=== PATIENT | male | born 1940 | race Caucasian/White ===

== ENCOUNTER 2017-01-09 06:56 | Day surgery (SDC) | payer MEDICARE, BC ==
[~2017-01-09] VITALS: Ht 188 cm; Wt 97.6 kg
[2017-01-09 07:33] LABS: HEMATOCRIT 40.7 % (42.0-54.0); HEMOGLOBIN 13.6 g/dL (13.5-17.5); MCH 32.5 pg (26.0-34.0); MCHC 33.4 g/dL (31.0-37.0); MCV 97.4 fL (80.0-100.0); RBC 4.18 10x6/uL (4.20-6.10); RDW 14.3 % (11.5-14.5); WBC 6.4 10x3/uL (4.8-10.8)
[2017-01-09 07:42] LABS: APTT 26.4 SECONDS (22.8-39.4); INR 0.95 (0.85-1.17); PROTIME 12.5 SECONDS (11.6-15.0)
[2017-01-09 07:44] LABS: CALCIUM 8.8 mg/dL (8.5-10.1); CARBON DIOXIDE 26.3 mmol/L (21.0-32.0); CREATININE - SERUM 1.5 mg/dL (0.6-1.3); POTASSIUM - SERUM 4.3 mmol/L (3.5-5.1)
[2017-01-09] MEDS ORDERED: CENTRUM SILVER1 TA1 PO (09:49)
[2017-01-09] MEDS ORDERED: VITAMIN D31000 UNIT PO (09:49)
[2017-01-09] MEDS ORDERED: FLOMAX0.4 MG PO (09:51)
[2017-01-09] MEDS ORDERED: LISINOPRIL10 MG PO (09:51)
[2017-01-09] MEDS ORDERED: SYNTHROID50 MCG PO (09:52)
[2017-01-09] MEDS ORDERED: BAYER CHEWABLE81 MG PO (09:53)
[2017-01-09] MEDS ORDERED: ZYLOPRIM300 MG PO (09:54)
[2017-01-09 10:18] VITALS: BP 149/77; Ht 188 cm; Wt 97.6 kg
[2017-01-09 11:35] LABS: APPEARANCE CLEAR (CLEAR); BILIRUBIN NEGATIVE (NEGATIVE); COLOR YELLOW (YELLOW); GLUCOSE NEGATIVE (NEGATIVE); KETONE NEGATIVE (NEGATIVE); LEUKOCYTE ESTERASE NEGATIVE (NEGATIVE); NITRITE NEGATIVE (NEGATIVE); PROTEIN NEGATIVE (NEGATIVE); SPECIFIC GRAVITY 1.015 (1.005-1.020); UROBILINOGEN NORMAL (NORMAL)
--- NOTE | 2017-01-09 15:13 | NUR ---
1420--IV DC'D, PT UP TO DRESS AT THIS TIME. RICARDO JIN 1430--DISCHARGE INSTRUCTIONS GIVEN, PT VERBALIZES UNDERSTANDING. PT OFF UNIT VIA WC. RICADRO JIN
[2017-01-10 11:10] LABS: HEPATITIS C ANTIBODY <0.1 (0.0-0.9)
--- NOTE | 2017-01-10 11:55 | HP ---
PATIENT: ORIANA DUFFY MEDICAL RECORD: [id number] ACCOUNT: [id number] LOCATION:D.OPS : 40 ADMISSION DATE: 01/09/17 HISTORY AND PHYSICAL EXAMINATION ORIANA Trinidad (76yo, M) ID# [id number] Date/Time12/31/2016 02:06PGUPQ60 1940ervice Dept.NP_[facility] ClinicProviderEDNADIA MARMOLEJO MDInsuranceMed Primary: [place] Insurance # : [id number] Referring Provider Name : RICO VIDALES Employer Name : RETIRED Med Secondary: [place] ([place]PPLEMENT) Insurance # : [id number] Policy/Group # : [id number] Referring Provider Name : RICO VIDALES Employer Name : RETIRED Prescription: [employer] - This member could not be found in the payer's files. Please verify coverage and all member demographic information. Chief Complaint valvular heart disease Patient's Care Team Referring Provider (): RICO VIDALES: [address] [place] [phone], , Patient's Pharmacies [facility] (ER[facility]): [address] [place] [phone], , Vitals BP:130/80 sitting R arm 12/31/2016 02:24 pm 128/82 sitting L arm 12/31/2016 02:25 pmHR:80R/R 12/31/2016 02:25 pmHt:6 ft 2 in 12/31/2016 02:22 pmWt:221 lbs 12/31/2016 02:22 pmNotes:murmur 12/31/2016 02:28 pmBMI:28.4 12/31/2016 02:22 pmAllergies Reviewed Allergies PENICILLINSROBITUSSINMedications Reviewed Medications Adult Low Dose Pvygzwc25/29/17 enteredKathy Wilsonallopurinol 300 mg tablet Take 1 tablet(s) twice a day by oral route.12/30/16 enteredKathy WilsonCentrum Complete 18 mg-400 mcg tablet Take by oral route.12/30/16 [facility] WilsonLevitra 20 mg tablet TAKE 1 TABLET (20 MG) BY ORAL ROUTE ONCE DAILY NEEDED APPROXIMATELY 1 HOUR BEFORE SEXUAL YAWNBHHF60/29/17 [facility] JabariSynthroid 50 mcg tablet Take 1 tablet(s) every day by oral route.12/30/16 [facility] JabariVitamin D3 2,000 unit capsule Take 1 capsule(s) every day by oral route.12/30/16 [facility] WilsonProblems Reviewed Problems Mitral valve regurgitation - Onset: 12/30/2016 Mitral valve disorder - Onset: 12/30/2016 Family History Discussed Family History Father- Disorder of lung - Chronic obstructive lung disease ( age: 79)Mother- Tuberculosis ( age: 27)Social History Discussed Social History Cardiology Family history of heart disease?: N Smoking Status: Former smoker (Notes: quit May 2010) HISTORY AND PHYSICAL [id number] ORIANA DUFFY High Cholesterol: N High blood pressure: N Overweight: Y Obese: N Diabetes: N Alcohol intake: Occasional Occupation: retired Surgical History Reviewed Surgical History Colonoscopy with biopsy - 05/04/2006 Ligation of hemorrhoid(s) - 05/04/1991 Past Medical History Discussed Past Medical History Heartburn: Y Hyperlipidemia: Y Hypertension: Y Hypothyroidism: Y Joint Pain or Swelling: Y - L shoulder Prostate Problems: Y Notes: gout, ED, hemorrhoids, DJD cervical spine, bursitis L shoulder, BPH, fatigue, lumbar strain, gastritis, sinusitis, bronchitis Documents for Discussion N/A Screening None recorded. HPI Valvular Heart Disease Reported by patient. Context: mitral insufficiency Mitral Insufficiency: moderate Associated Symptoms: palpitations; chest pain Notes: "fatigue light headed." Murmur and mitral regurgitation ROS Patient reports arm pain on exertion and known heart murmur but reports no chest pain, no shortness of breath when walking, no shortness of breath when lying down, and no palpitations. He reports muscle aches and arthralgias/joint pain but reports n o muscle weakness, no back pain, and no swelling in the extremities. He reports no fever, no night sweats, no significant weight gain, no significant weight loss, and no exercise intolerance. He reports no dry eyes, no irritation, and no vision change. He reports no difficulty hearing and no ear pain. He reports no frequent nosebleeds and no nose/sinus problems. He reports no sore throat, no bleeding gums, no snoring, no dry mouth, no mouth ulcers, no oral abnormalities, and no teeth problems. He reports n o jugular vein distension and no swollen glands. He reports no cough, no wheezing, no shortness of breath, and no coughing up blood. He reports no abdominal pain, no vomiting, normal appetite, no diarrhea, not vomiting blood, no nausea, and no constipation . He reports no incontinence, no difficulty urinating, no hematuria, and no increased frequency. He reports no abnormal mole, no jaundice, and no rashes. He reports no loss of consciousness, no weakness, no numbness, no seizures, no dizziness, and no heada c hes. He reports no depression, no sleep disturbances, feeling safe in relationship, and no alcohol abuse. He reports no fatigue. He reports no swollen glands and no bruising. He reports no runny nose, no sinus pressure, no itching, no hives, and no freque nt sneezing. ROS as noted in the HPI HISTORY AND PHYSICAL [id number] ORIANA DUFFY Physical Exam Patient is a 76-year-old male. Constitutional: General Appearance well nourished and developed and healthy-appearing. Level of Distress NAD. Ambulation ambulating normally. Cardiovascular: Apical Impulse not displaced or no thrill. Heart Auscultation normal s1 and s2, no rubs or gallops, and RRR and murmur (mitral regurgitation). Arterial Pulses no abdominal aorta bruits, femoral bruits, or popliteal bruits and 2+ bilateral, carotid 2+ bilateral, femoral 2+ bilateral, popliteal 2+ bilateral, and dorsalis pedis 2+ bilateral. Edema no edema or varicosities. Lungs: Repiratory Effort no dyspnea. Percussion no hyperresonance or dullness or flatness. Auscultation no wheezing, rhonchi, or rales / crackles and breathing sounds normal, good air movement, and CTA except as noted. Abdomen: Bowl Sounds normal. Inspection and Palpation no tenderness, guarding, masses, or rebound tenderness and soft and non-distended. Liver non-tender and no hepatomegaly. Spleen non-tender and no splenomegaly. Hernia none palpable. Musculoskeletal System: Gait And Stance normal gait and stance. Digits and Nails normal nails and no cyanosis. Neurologic: Cranial Nerves grossly intact. Reflexes DTRs 2+ bilaterally throughout. Sensation grossly intact. Lymph Nodes: Lymph Nodes no cervical LAD, supraclavicular LAD, axillary LAD, or inguinal LAD. Eyes: Lids and Conjunctivae no discharge or pallor and non-injected. Pupils PERRLA. Cornea grossly intact. EOM EOMI. Lens clear. Sclerae non-icteric. Neck: Neck no masses, enlarged lymph nodes, or carotid bruits and supple and trachea midline. Thyroid no enlargement or nodules and non-tender. Skin: Inspection and Palpation no rash, lesions, ulcers, jaundice, or abnormal nevi. Assessment / Plan mitral regurgitation 1. Mitral valve regurgitation I34.0: Nonrheumatic mitral (valve) insufficiency HEART VALVE DISEASE: CARE INSTRUCTIONS MITRAL VALVE REGURGITATION: CARE INSTRUCTIONS Discussion Notes mitral regurgitation His left atrium was not enlarged and he is not short of breath I think he would benefit from a transesophageal echo scheduled transesophageal echo HISTORY AND PHYSICAL [id number] ORIANA DUFFY EDWARD MD at 1155 CC: [id number] DICTATION DATE: 12/31/16 1400 ROLLING ATTENDANT: DM 01/08/17 0956 [facility] 01/09/17 [facility] [address] [place] [address]
--- NOTE | 2017-01-10 11:55 | OP ---
PATIENT NAME: ORIANA DUFFY MEDICAL RECORD: [id number] :40 [facility] AD[facility] DATE: SURGEON: BRITTANY CHRIS MD DATE OF OPERATION: 01/09/2017 SURGEON: Brittany Chris MD ANESTHESIA: General. Dr. Mullen. OPERATION PERFORMED: Transesophageal echo. PREOPERATIVE DIAGNOSIS: Possible mitral regurgitation, mitral valve prolapse. POSTOPERATIVE DIAGNOSIS: Mitral valve prolapse. Minimal mitral regurgitation, left atrium 3 cm. ESTIMATED BLOOD LOSS: None. DESCRIPTION OF PROCEDURE: After informed consent and adequate preoperative medication evaluation, the patient was brought to the operating room and placed on the table in the supine position. After induction of general anesthesia and application of appropriate monitoring devices, the patient underwent transesophageal echo with the images obtained in the machine. These will be read by the insurance adviser. Interpretation at the time of surgery demonstrates posterior leaflet mitral valve prolapse; however, the mitral regurgitation is very minimal. The patient tolerated the procedure well, awakened and transferred to the recovery room in satisfactory condition. TRANSINT:[id number] Voice Confirmation ID: [id number] DOCUMENT ID: [id number] BRITTANY CHRIS MD at 1155 CC: [id number] DICTATION DATE: 01/09/17 1251 DYEING MACHINE TENDER: 01/09/[address] [facility] 01/09/17 [place] [id number] [place] [address]
--- NOTE | 2017-01-13 09:05 | TEE ---
PATIENT:ORIANA DUFFY MEDICAL RECORD: [id number] LOCATION:D.[facility] AGE OF PATIENT: 76 ADMISSION DATE: 01/09/17 SEX: M REFERRING PHYSICIAN: INTERPRETING PHYSICIAN: TIGRE QUINONES MD TRANSESOPHAGEAL ECHOCARDIOGRAM MAVIS CHARGE Y INDICATIONS: EVALUATE MITRAL VALVE PREMEDICATIONS: PATIENT'S RESPONSE PROCEDURE DOPPLER MEASUREMENTS: LVIT LA PA RA LVOT RVOT Asc. Ao AV Gradient Peak AV Mean AV Area MV Gradient Peak MV Mean MV Area INTERPRETATION: Doppler: 2-D: COLOR FLOW DOPPLER NORMAL SALINE STUDY: MISCELLANOUS: DIAGNOSIS: PLAN: Swine Genetics Researcher:1 Dr. Spencer Vamp Seamer: Nannette JAVED COMMENTS: DATE OF SERVICE: 01/09/2017 Transesophageal Report FINDINGS: 1. Left ventricle has mild LVH, but appears to have normal function. 2. The mitral valve appears to have prolapsing posterior mitral valve structures with eccentric mitral regurgitation, anteriorly directed. 3. The aortic valve is trileaflet and normal. TRANSESOPHAGEAL ECHOCARDIOGRAM REPORT [id number] ORIANA DUFFY 4. The pulmonic valve appears to be grossly normal. CONCLUSION: The patient appears to have a possible chordal disruption of the posterior mitral valve leaflet structure with resultant dysfunction of the coaptation resulting in anteriorly directed regurgitation. TRANSINT:[id number] Voice Confirmation ID: [id number] DOCUMENT ID: [id number] at 0905 CC: [id number] DICTATION DATE: 01/11/172015 PRODUCE DEPARTMENT SUPERVISOR: 01/11/17 2316 [facility] 01/09/17 [place] [id number] [place] [address]
== END 2017-01-09 14:30 | disposition home or self-care (01) ==
LOC: D.OPS 06:56
PROVIDERS: Internal Medicine Cardiovascular Disease
DX: I34.0 Nonrheumatic mitral (valve) insufficiency (principal); R00.1 Bradycardia, unspecified; Z01.812 Encounter for preprocedural laboratory examination

== ENCOUNTER → 2017-01-13 12:40 | Outpatient (CLI) | payer MEDICARE, BC ==
[2017-01-09 10:18] VITALS: BMI 27.6
[~2017-01-13 12:40] MED LIST: BAYER CHEWABLE81 MG PO; CENTRUM SILVER1 TA1 PO; FLOMAX0.4 MG PO; LISINOPRIL10 MG PO; SYNTHROID50 MCG PO; VITAMIN D31000 UNIT PO; ZYLOPRIM300 MG PO
== END | disposition home or self-care (01) ==
LOC: D.US 12:40
DX: I65.23 Occlusion and stenosis of bilateral carotid arteries (principal)

== ENCOUNTER 2017-07-10 14:51 | Inpatient (IN) | payer MEDICARE, BC ==
[~2017-07-10] VITALS: Ht 188 cm; Wt 102.3 kg
--- NOTE | ~2017-07-10 | CN ---
PATIENT NAME:ORIANA WASHINGTON MEDICAL RECORD: [id number] : 40 LOCATION:D[facility] ADMIT DATE: 07/10/17 ACCOUNT: [id number] CONSULTING PHYSICIAN: CHERRIE SOLIS MD REFERRING PHYSICIAN: JOSE STAFFORD DO DATE OF CONSULTATION: 07/10/2017 CONSULT REQUESTING PHYSICIAN: Butch STAFFORD. REASON FOR CONSULTATION: Pneumonia. HISTORY OF PRESENT ILLNESS: Mr. Washington is a 77-year-old gentleman who has flu 2 weeks ago, he was treated with Tamiflu for 5 days, but for the last few days, he is not feeling well. He is a running fever noted at home 104.5. He was also coughing. Cough is productive with yellow color sputum production. He is also having chills. There are no night sweats. The patient was seen in Dr. Stafford's office today and admitted for pneumonia, possible sepsis. REVIEW OF SYSTEMS: Mainly in the history of present illness. PAST MEDICAL HISTORY: 1. Hypothyroidism. 2. Hypertension. 3. History of murmur. PAST SURGICAL HISTORY: 1. He has vasectomy. 2. Hemorrhoidectomy. 3. He has transesophageal echo for heart murmur. ALLERGIES: HE IS ALLERGIC TO PENICILLIN. MEDICATIONS: He is on lisinopril, Synthroid. PERSONAL AND SOCIAL HISTORY: He has remote history of smoking. He quitted 50 years ago. He is a nondrinker. FAMILY HISTORY: Noncontributory. PHYSICAL EXAMINATION: GENERAL: Now, the patient is lying comfortably in bed. He is not in acute distress. VITAL SIGNS: Blood pressure 114/63, pulse is 86, respiration is 16, temperature 100.5, SpO2 92% on room air. HEENT: Conjunctivae is pink, sclerae nonicteric. NECK: Supple, no JVD. CHEST: Excursion is minimal with a crackle on the right side. HEART: Regular, normal sound, no murmur. ABDOMEN: Soft. Bowel sounds present. No hepatosplenomegaly. RECTAL: Deferred. EXTREMITIES: No cyanosis, no clubbing, no pedal edema. SKIN: Warm, normal turgor. CENTRAL NERVOUS SYSTEM: The patient is awake and alert. There are no obvious cranial nerve abnormality. The gait was not tested. CONSULT REPORT [id number] ORIANA WASHINGTON LABORATORY DATA: CBC: WBC 19.7, hemoglobin 13.4, hematocrit 41, and the platelet count is 246. The neutrophils are 83%. Chemistry: Sodium 135, potassium 4.3, BUN is 24, creatinine 1.8, glucose 130. IMPRESSION: 1. Pneumonia, possible right upper lobe, most likely community-acquired pneumonia. 2. Recent influenza. 3. Leukocytosis. 4. Febrile illness with a temperature of 100.5. 5. Ex-smoker, suspect chronic obstructive pulmonary disease. 6. Hypertension. 7. Hypothyroidism. RECOMMENDATION: 1. Continue Levaquin. I will add Rocephin. 2. Check the blood culture and follow up on the labs and chest radiograph. 3. Continue IV fluids. 4. Mucinex DM 2 tablets b.i.d. 5. Tessalon Perles. 6. Continue home medications. Dr. Stafford, thank you for involving me in the care of Mr. Washington. TRANSINT:[id number] Voice Confirmation ID: [id number] DOCUMENT ID: [id number] CHERRIE SOLIS MD at 1340 CC: JOSE STAFFORD DO [id number] DICTATION DATE: 07/10/17 1739 WINDOW ASSEMBLER: 07/10/17 1816 [facility] IN 07/13/17 [facility] [address] [place] [address]
[2017-07-10 15:28] LABS: COLOR DK YELLOW (YELLOW)
[2017-07-10 15:29] LABS: APPEARANCE CLEAR (CLEAR); BILIRUBIN NEGATIVE (NEGATIVE); GLUCOSE NEGATIVE (NEGATIVE); KETONE NEGATIVE (NEGATIVE); NITRITE NEGATIVE (NEGATIVE); PROTEIN TRACE mg/dL (NEGATIVE); UROBILINOGEN NORMAL (NORMAL)
[2017-07-10 15:34] LABS: BASOPHILS 0.2 % (0-2); EOSINOPHILS 0.2 % (0-7); HEMOGLOBIN 13.4 g/dL (13.5-17.5); IMMATURE GRANULOCYTES 0.3 % (0-5); LYMPHOCYTES 5.4 % (15-50); MCH 33.1 pg (26.0-34.0); MCHC 32.7 g/dL (31.0-37.0); MCV 101.2 fL (80.0-100.0); MEAN PLATELET VOLUME 9.5 fL (7.4-10.4); MONOCYTES 10.7 % (2-11); NEUTROPHILS 83.2 % (40-80); PLATELET COUNT 246 10x3/uL (130-400); RBC 4.05 10x6/uL (4.20-6.10); RDW 14.3 % (11.5-14.5); WBC 19.7 10x3/uL (4.8-10.8)
[2017-07-10 15:52] VITALS: BMI 28.9
[2017-07-10 16:02] LABS: ALBUMIN 3.5 g/dL (3.4-5.0); ANION GAP 13.1 mmol/L (8-16); BILIRUBIN - TOTAL 1.46 mg/dL (0.2-1.3); CALCIUM 9.2 mg/dL (8.5-10.1); CARBON DIOXIDE 25.2 mmol/L (21.0-32.0); CREATININE - SERUM 1.8 mg/dL (0.6-1.3); POTASSIUM - SERUM 4.3 mmol/L (3.5-5.1)
[2017-07-10 23:02] VITALS: BP 116/52
[2017-07-11 02:45] VITALS: BP 116/52
[2017-07-11 04:32] VITALS: BP 112/55
[2017-07-11 06:09] LABS: BASOPHILS 0.1 % (0-2); EOSINOPHILS 0.4 % (0-7); HEMATOCRIT 37.1 % (42.0-54.0); HEMOGLOBIN 11.8 g/dL (13.5-17.5); IMMATURE GRANULOCYTES 0.2 % (0-5); LYMPHOCYTES 9.4 % (15-50); MCH 31.9 pg (26.0-34.0); MCHC 31.8 g/dL (31.0-37.0); MCV 100.3 fL (80.0-100.0); MEAN PLATELET VOLUME 9.5 fL (7.4-10.4); MONOCYTES 12.2 % (2-11); NEUTROPHILS 77.7 % (40-80); PLATELET COUNT 245 10x3/uL (130-400); RDW 14.1 % (11.5-14.5); WBC 16.6 10x3/uL (4.8-10.8)
[2017-07-11 06:26] LABS: ALBUMIN 2.7 g/dL (3.4-5.0); ANION GAP 12.4 mmol/L (8-16); BILIRUBIN - TOTAL 1.1 mg/dL (0.2-1.3); CALCIUM 8.5 mg/dL (8.5-10.1); CARBON DIOXIDE 26.3 mmol/L (21.0-32.0); CREATININE - SERUM 1.8 mg/dL (0.6-1.3); POTASSIUM - SERUM 4.7 mmol/L (3.5-5.1); PROTEIN - SERUM 6.6 g/dL (6.4-8.2)
[2017-07-11 06:31] LABS: APPEARANCE CLEAR (CLEAR); BILIRUBIN NEGATIVE (NEGATIVE); COLOR YELLOW (YELLOW); GLUCOSE NEGATIVE (NEGATIVE); KETONE NEGATIVE (NEGATIVE); NITRITE NEGATIVE (NEGATIVE); PROTEIN 1+ mg/dL (NEGATIVE); SPECIFIC GRAVITY 1.015 (1.005-1.020); UROBILINOGEN NORMAL (NORMAL)
[2017-07-11 06:32] LABS: BACTERIA FEW /hpf (NONE SEEN); EPITHELIAL CELLS 0-5 /hpf (0-5); RED CELLS - URINE NONE SEEN /hpf (0-5); WHITE CELLS - URINE 0-5 /hpf (0-5)
[2017-07-11 08:20] VITALS: BP 109/61
[2017-07-11 12:27] VITALS: BP 140/70
[2017-07-11 15:18] VITALS: BP 126/72
[2017-07-11 22:58] VITALS: BP 130/65
[2017-07-12 01:21] VITALS: BP 128/70
[2017-07-12 05:09] LABS: BASOPHILS 0.2 % (0-2); EOSINOPHILS 1.1 % (0-7); HEMATOCRIT 37.6 % (42.0-54.0); HEMOGLOBIN 12.3 g/dL (13.5-17.5); IMMATURE GRANULOCYTES 0.2 % (0-5); LYMPHOCYTES 12.7 % (15-50); MCH 32.5 pg (26.0-34.0); MCHC 32.7 g/dL (31.0-37.0); MCV 99.2 fL (80.0-100.0); MEAN PLATELET VOLUME 9.4 fL (7.4-10.4); MONOCYTES 13.2 % (2-11); NEUTROPHILS 72.6 % (40-80); PLATELET COUNT 257 10x3/uL (130-400); RBC 3.79 10x6/uL (4.20-6.10); RDW 14.1 % (11.5-14.5); WBC 15.1 10x3/uL (4.8-10.8)
[2017-07-12 05:28] LABS: ALBUMIN 2.7 g/dL (3.4-5.0); ANION GAP 10.4 mmol/L (8-16); BILIRUBIN - TOTAL 0.79 mg/dL (0.2-1.3); CALCIUM 9.2 mg/dL (8.5-10.1); CREATININE - SERUM 1.7 mg/dL (0.6-1.3); POTASSIUM - SERUM 4.4 mmol/L (3.5-5.1)
[2017-07-12 05:44] VITALS: BP 134/74
[2017-07-12 08:32] VITALS: BP 91/62
[2017-07-12 12:07] VITALS: BP 96/48
[2017-07-12 18:20] VITALS: Ht 188 cm; Wt 102.3 kg
[2017-07-12 23:07] VITALS: BP 140/73
[2017-07-13 04:08] LABS: BASOPHILS 0.2 % (0-2); EOSINOPHILS 2.3 % (0-7); HEMATOCRIT 33.8 % (42.0-54.0); IMMATURE GRANULOCYTES 0.3 % (0-5); LYMPHOCYTES 12.6 % (15-50); MCH 32.2 pg (26.0-34.0); MCHC 32.5 g/dL (31.0-37.0); MCV 98.8 fL (80.0-100.0); MEAN PLATELET VOLUME 9.5 fL (7.4-10.4); MONOCYTES 13.7 % (2-11); NEUTROPHILS 70.9 % (40-80); PLATELET COUNT 275 10x3/uL (130-400); RBC 3.42 10x6/uL (4.20-6.10); RDW 14.1 % (11.5-14.5); WBC 11.7 10x3/uL (4.8-10.8)
[2017-07-13 04:21] LABS: ALBUMIN 2.4 g/dL (3.4-5.0); ANION GAP 14.3 mmol/L (8-16); BILIRUBIN - TOTAL 0.65 mg/dL (0.2-1.3); CALCIUM 8.8 mg/dL (8.5-10.1); CREATININE - SERUM 1.7 mg/dL (0.6-1.3); POTASSIUM - SERUM 4.3 mmol/L (3.5-5.1); PROTEIN - SERUM 6.4 g/dL (6.4-8.2)
[2017-07-13 05:06] VITALS: BP 136/69
[2017-07-13] MEDS ORDERED: LEVAQUIN750 MG PO (07:17)
[2017-07-13 08:11] VITALS: BP 147/91
== END 2017-07-13 09:54 | disposition home or self-care (01) | DRG 871 ==
LOC: D.MS 14:51
PROVIDERS: Family Medicine
DX: A41.9 Sepsis, unspecified organism (principal); J18.9 Pneumonia, unspecified organism; E03.9 Hypothyroidism, unspecified; Z87.891 Personal history of nicotine dependence

== ENCOUNTER → 2017-10-13 09:42 | Outpatient (CLI) | payer MEDICARE, BC ==
[2017-07-12 18:20] VITALS: BMI 28.9
--- NOTE | ~2017-10-13 | EC ---
PATIENT:ORIANA DUFFY DATE OF SERVICE: 10/13/17 SEX: M MEDICAL RECORD: [id number] DATE OF : 40 [facility] AGE OF PATIENT: 77 ADMISSION DATE: 10/13/17 REFERRING PHYSICIAN: INTERPRETING PHYSICIAN: CONSTANCE MARKS MD ECHOCARDIOGRAM REPORT ECHO CHARGES 4 ECHO COMPLETE Date: 10/13 CLINICAL DIAGNOSIS: MITRAL REGURG ECHOCARDIOGRAPHIC MEASUREMENTS (adult normal given) AC root (d.<3.7cm) 3.5 cm LV Septum d (<1.2 cm> 1.6 cm Valve Excursion 1.7 cm LV Septum (systole) 1.8 cm Left Atria (s.<4.0cm> 3.9 cm LVPW d(<1.2cm) 1.6 cm RV (d.<2.3cm) 4.4 cm LVPW (sytole) 1.9 cm LV diastole(<5.6CM) 5.6 cm MV E-F(>70mm/sec) cm LV systole 3.2 cm LVOT Diameter 2.3 cm MV exc.(>10mm) 2.1 cm Est.ejection fraction (50-75%) % DOPPLER: LVIT cm/sec A 93.0 cm/sec E 97.0 cm/sec LA cm/sec RVSP 29 mmHg LVOT 108 cm/sec AOP1/2T m/s Asc. Ao 133 cm/sec RVOT 76 cm/sec RA cm/sec PA 134 cm/sec AV Gradient Peak 7.04 mmHg AV Mean 3.30 mmHg AV Area 3.7 cm MV Gradient Peak 4.52 mmHg MV Mean 1.90 mmHg MV Area cm COMMENTS: Milk Truck Driver: Monica GAN Permanent Mold Supervisor: 2 Dr. Kraus TAPE# PACS Pericardial Effusion N DATE OF SERVICE: 10/13/2017 PROCEDURE: Echocardiogram. FINDINGS: 1. Left ventricular chamber size is within normal limits. Left ventricular systolic function is normal. Overall ejection fraction estimated at 65%. 2. Left atrium is upper limits of normal at 3.9 cm. Right atrium and right ventricle chamber sizes are yicv-fq-rnmlcasuyk dilated. 3. Valvular structures have normal structure and motion. ECHOCARDIOGRAM REPORT [id number] ORIANA DUFFY 4. Doppler interrogation reveals nehx-of-mdriowym mitral regurgitation, mild tricuspid regurgitation, no other valvular insufficiency or stenosis. Pulmonary systolic pressure is normal estimated at 29 mmHg. 5. No evidence of pericardial effusion or left ventricular thrombus. TRANSINT:[id number] Voice Confirmation ID: [id number] DOCUMENT ID: [id number] CONSTANCE MARKS MD at 1705 CC: [id number] DICTATION DATE: 10/13/17 1058 COAL INSPECTOR: 10/13/17 1315 [facility] CLI 10/13/17 [place] [id number] [place] [id number]
[~2017-10-13 09:42] MED LIST changes: +LEVAQUIN750 MG PO
== END | disposition home or self-care (01) ==
LOC: D.ECHO 10-12 09:00
DX: I34.0 Nonrheumatic mitral (valve) insufficiency (principal)

== ENCOUNTER → 2017-10-23 09:34 | Outpatient (CLI) | payer MEDICARE, BC ==
[2017-07-12 18:20] VITALS: BMI 28.9
== END | disposition home or self-care (01) ==
LOC: D.CT 09:34
DX: J18.9 Pneumonia, unspecified organism (principal)

== ENCOUNTER → 2018-10-08 09:05 | Outpatient (CLI) | payer MEDICARE, BC ==
[2017-07-12 18:20] VITALS: BMI 28.9
--- NOTE | 2018-10-11 09:55 | EC ---
PATIENT:ORIANA DUFFY DATE OF SERVICE: 10/08/18 SEX: M MEDICAL RECORD: [id number] DATE OF : 40 LOCATION:D[facility] AGE OF PATIENT: 78 ADMISSION DATE: 10/08/18 REFERRING PHYSICIAN: INTERPRETING PHYSICIAN: SAIDA RECINOS MD ECHOCARDIOGRAM REPORT ECHO CHARGES 4 ECHO COMPLETE Date: 10/08/18 CLINICAL DIAGNOSIS: MR ECHOCARDIOGRAPHIC MEASUREMENTS (adult normal given) AC root (d.<3.7cm) 2.9 cm LV Septum d (<1.2 cm> 1.3 cm Valve Excursion 1.4 cm LV Septum (systole) 1.6 cm Left Atria (s.<4.0cm> 4.0 cm LVPW d(<1.2cm) 1.2 cm RV (d.<2.3cm) 3.2 cm LVPW (sytole) 1.5 cm LV diastole(<5.6CM) 4.9 cm MV E-F(>70mm/sec) cm LV systole 3.3 cm LVOT Diameter 2.1 cm MV exc.(>10mm) cm Est.ejection fraction (50-75%) % DOPPLER: LVIT cm/sec A 77 cm/sec E 83 cm/sec LA cm/sec RVSP 75.3 mmHg LVOT 107 cm/sec AOP1/2T m/s Asc. Ao 129 cm/sec RVOT 63 cm/sec RA cm/sec PA 88 cm/sec AV Gradient Peak 6.7 mmHg AV Mean 3.8 mmHg AV Area 2.6 cm MV Gradient Peak 4.7 mmHg MV Mean 1.9 mmHg MV Area cm COMMENTS: Shank Threader: Kishan GARCIAMICHAEL CHRISTINA Lump Roller: 3 Dr. Cramer TAPE# PACS Pericardial Effusion N DATE OF SERVICE: Adequate 2D, color flow, spectral Doppler, and M-Mode Borderline LVH. LV internal dimensions are normal. Wall motion is normal. EF is greater than or equal to 55%. Aortic valve sclerosis is without stenosis by Doppler interrogation. Left atrium is normal at 4.0 cm. Mitral valve shows some bowing of the posterior leaflet. No obvious prolapse, but severe MR. Right-sided chambers are grossly normal. Mild TR. ECHOCARDIOGRAM REPORT [id number] ORIANA DUFFY TRANSINT:[id number] Voice Confirmation ID: [id number] DOCUMENT ID: [id number] SAIDA RECINOS MD at 0955 CC: [id number] DICTATION DATE: 10/08/18 1133 PARKING SUPERVISOR: 10/08/18 1345 [facility] CLI 10/08/18 [address] [place] [address]
== END | disposition home or self-care (01) ==
LOC: D.ECHO 09:05
PROVIDERS: ATTEND Internal Medicine Cardiovascular Disease
DX: I34.0 Nonrheumatic mitral (valve) insufficiency (principal)

== ENCOUNTER → 2019-02-01 08:35 | Outpatient (CLI) | payer MEDICARE, BC ==
[2017-07-12 18:20] VITALS: BMI 28.9
[~2019-02-01 08:35] MED LIST changes: +BETAPACE 80 MG80 MG PO; +COLACE100 MG PO; +PERCOCET 5-3251 TAB PO; +PROSCAR5 MG PO; +VITAMIN C500 M1 PO
--- NOTE | 2019-02-03 13:56 | EC ---
PATIENT:ORIANA DUFFY DATE OF SERVICE: 02/01/19 SEX: M MEDICAL RECORD: [id number] DATE OF : 40 [facility] AGE OF PAT[facility]: 78 ADMISSION DATE: 02/01/19 REFERRING PHYSICIAN: INTERPRETING PHYSICIAN: SAIDA RECINOS MD ECHOCARDIOGRAM REPORT ECHO CHARGES 4 ECHO COMPLETE Date: 02/01/19 CLINICAL DIAGNOSIS: MR H/O HTN ECHOCARDIOGRAPHIC MEASUREMENTS (adult normal given) AC root (d.<3.7cm) 3.1 cm LV Septum d (<1.2 cm> 1.5 cm Valve Excursion 1.8 cm LV Septum (systole) 2.1 cm Left Atria (s.<4.0cm> 4.8 cm LVPW d(<1.2cm) 1.3 cm RV (d.<2.3cm) 2.9 cm LVPW (sytole) 1.8 cm LV diastole(<5.6CM) 5.7 cm MV E-F(>70mm/sec) cm LV systole 3.3 cm LVOT Diameter 2.2 cm MV exc.(>10mm) cm Est.ejection fraction (50-75%) % DOPPLER: LVIT cm/sec A 77.0 cm/sec E 105 cm/sec LA cm/sec RVSP 37.0 mmHg LVOT 101 cm/sec AOP1/2T m/s Asc. Ao 210 cm/sec RVOT 73.0 cm/sec RA cm/sec PA 92.0 cm/sec AV Gradient Peak 18.0 mmHg AV Mean 9.3 mmHg AV Area 1.6 cm MV Gradient Peak 5.6 mmHg MV Mean 2.1 mmHg MV Area cm COMMENTS: OP - HC Telephone Order Dispatcher: 1 PARDEEP BELLOOE Merchandise Executive: 3 Dr. Cramer TAPE# PACS Pericardial Effusion N DATE OF SERVICE: Adequate 2D, color flow imaging, spectral Doppler, and M-Mode. Mild LVH. LV internal dimensions are normal. Wall motion is normal. EF is greater than or equal to 55%. Aortic valve is sclerosed without stenosis by Doppler interrogation. Left atrium is dilated at 4.8 cm. Mitral valve shows prolapse. Jzfd-dj-osiaiexb MR. Right-sided chambers grossly normal. Trace TR. TRANSINT:[id number] Voice Confirmation ID: [id number] DOCUMENT ID: [id number] ECHOCARDIOGRAM REPORT [id number] ORIANA DUFFY,SAIDA Rivera MD at 1356 CC: [id number] DICTATION DATE: 02/01/19 161 ETL DEVELOPER: 02/02/19 0109 [facility]P CLI 02/01/19 [place] [address] [place] [address]
== END | disposition home or self-care (01) ==
LOC: D.HCCECHO 08:35 → D.HCCARDIO 09:00 → D.HCCECHO 09:00
PROVIDERS: ATTEND Internal Medicine Interventional Cardiology
DX: I34.0 Nonrheumatic mitral (valve) insufficiency (principal)

== ENCOUNTER 2019-02-21 10:56 | Outpatient (CLI) | payer MEDICARE, BC ==
[~2019-02-21] VITALS: Ht 188 cm; Wt 100.0 kg
--- NOTE | ~2019-02-21 | HEMODYNAMI ---
PATIENT:ORIANA DUFFY MEDICAL RECORD: [id number] : 40 LOCATION:D.CAT ADMISSION DATE: 02/21/19 Generatedon:02/21/201913:26 Patient name: ORIANA DUFFY Patient #: [id number] SSN: : 1940 Date of study: 02/21/2019 Page: Of Hemodynamic Procedure Report Patient Data Patient Demographics Procedure consent was obtained First Name: ORIANA Gender: Male Last Name: CLIVE : 1940 [facility] Initial: MATT Age: 78 year(s) Patient #: [id number] Race: Unknown Additional ID: [id number] Contact details Address: [address] [place] [address] [facility] State: [place] City: [place] Zip code: [address] Past Medical History Allergies Allergen Reaction Date Comments Reported Other allergy 02/21/2019 N Admission Admission Data Admission Date: 02/21/2019 Admission Time: 10:56 Lab Results Lab Result Date: 02/21/2019 Lab Result Time: 0:00 Biochemistry Name Units Result Min Max BUN mg/dl 23 --(----)-* 7 18 Creatinine mg/dl 1.6 --(----)-* 0.6 1.3 CBC Name Units Result Min Max Hemoglobin g/dl 14.8 --(-*--)-- 13.5 17.5 Procedure Procedure Types Cath Procedure Diagnostic Procedure MAVIS Procedure Description Procedure Date Procedure Date: 02/21/2019 Procedure Start Time: 13:06 Procedure End Time: 13:24 Procedure Staff Name Function Ziggy Steinberg MD Performing Physician Edgardo Bryan CRNA Additional personnel Chasity Lopez Newspaper Vendor Josee Kauffman RN Nurse Pradeep Licea RT Monitor Procedure Data Cath Procedure Fluoroscopy Diagnostic fluoroscopy Total fluoroscopy Time: 0 time: 0 min min Diagnostic fluoroscopy Total fluoroscopy dose: 0 dose: 0 mGy mGy Estimated blood loss: 0 ml Procedure Complications No complications Procedure Medications Medication Administration Route Dosage 0.9% NaCl I.V. 100 ml/hr Oxygen etCO2 Nasal cannula 2 l/min Hurricaine Wirt P.O. 2 Sprays Refer to Anesthesia Notes for Sedation Medications Hemodynamics Rest HGB: 14.8 (g/dl) Heart Rate: 61 (bpm) Snapshots Pre Cath Intra NCS Post Cath Vital Signs Time Heart Resp SPO2 etCO2 NIBP (mmHg) Rhythm Pain Sedation Rate (ipm) (%) (mmHg) Status Level (bpm) 12:43:28 62 16 97 0 154/84(131) NSR 0 (11) 10(A) , No pain 12:47:46 59 14 98 32.7 155/83(128) SB 0 (11) 10(A) , No pain 12:52:19 61 20 97 31.2 166/68(133) NSR 0 (11) 10(A) , No pain 12:56:41 61 24 97 29.8 157/84(109) NSR 0 (11) 10(A) , No pain 13:01:01 62 17 96 29.8 152/82(130) NSR 0 (11) 10(A) , No pain 13:05:15 72 17 97 31.2 152/106(120) NSR 0 (11) 10(A) , No pain 13:09:29 73 20 94 21.6 171/99(127) NSR 0 (11) 5(A) , No pain 13:13:53 68 21 94 0 157/85(131) NSR 0 (11) 5(A) , No pain 13:18:11 58 16 93 25.3 138/72(104) SB 0 (11) 10(A) , No pain 13:21:38 62 21 85 31.2 139/77(113) SB 0 (11) 10(A) , No pain Medications Time Medication Route Dose Verified Delivered Reason Notes Effectiv eness by by 12:53:10 0.9% NaCl I.V. 100 Ziggy Tripp used for ml/hr [facility] Kauffman procedure MD JIN 12:53:22 Oxygen etCO2 2 Ziggy Tripp used for Nasal l/min [facility] Kauffman procedure cannula MD JIN 12:53:35 Hurricaine P.O. 2 Ziggy Montesa used for Wirt Sprays [facility] Kauffman procedure MD JIN 12:54:11 Refer to Ziggy Trinh for Anesthesia [facility] sedation Notes for MD LIEBERMAN Sedation Medications Procedure Log Time Note 12::43 Procedure Status Elective Heart Cath (OP). 12:28:45 Darcie Reyes RT(R) sent for patient. Start room use. 12::47 Time tracking: Regular hours (M-F 7:00 - 5:00) 12:28:51 Plan of Care:Hemodynamics will remain stable., Cardiac rhythm will remain stable., Comfort level will be maintained., Respiratory function will remain adequate., Patient/ family verbilizes understanding of procedure., Procedure tolerated without complication., Recovers from procedure without complications.. 12:28:58 Patient received from Pre/Post Procedure Room to CCL 3 Alert and oriented. Tansferred to table in Supine position. 12:29:02 Signed procedure consent form obtained from patient. 12:42:15 Vital chart was started 12:42:57 Warm blankets applied, and wilfredo hugger turned on for patient comfort. 12:42:58 Correct patient and procedure confirmed by team. 12:42:59 ECG and BP/O2 sat monitors applied to patient. 12:43:01 Baseline sample Acquired. 12:43:03 Full Disclosure recording started 12:43:30 H&P Date Dictated: 02/18/2019 Within 30 days and on chart.. 12:43:32 Pre-procedure instructions explained to patient. 12:43:35 Family in waiting room. 12:43:37 Patient NPO since Midnight. 12:43:52 Patient allergic to Other allergyPCN 12:43:57 Is the patient allergic to Iodine/contrast media? N/A. 12:44:00 Was the patient premedicated? Yes 12:44:02 Is patient on blood thinner?Yes 12:44:05 ACC The patient was administered the following blood thiners within the last 24 hours: ACCAspirin 12:44:10 Patient diabetic? No. 12:44:16 Snore? Yes 12:44:17 Sleep apnea? No 12:44:23 Dentures? Yes out 12:44:43 IV patent on arrival in left forearm with 0.9% NaCl at [facility]. 12:45:29 Lab Result : BUN 23 mg/dl 12:45:29 Lab Result : Hemoglobin 14.8 g/dl 12:45:29 Lab Result : Creatinine 1.6 mg/dl 12:45:33 Lab results completed and on chart. 12:45:45 Alarms reviewed by R. N. 12:45:45 Sharps counted by scrub and verified by R.N. 12:45:51 Physician paged 12:52:30 Physician arrived 12:53:10 0.9% NaCl 100 ml/hr I.V. was administered by Josee Kauffman RN; used for procedure; Verbal order read back and verified. 12:53:22 Oxygen 2 l/min etCO2 Nasal cannula was administered by Josee Kauffman RN; used for procedure; Verbal order read back and verified. 12:53:35 Hurricaine Wirt 2 Sprays P.O. was administered by Josee Kauffman RN; used for procedure; Verbal order read back and verified. 12:54:11 Refer to Anesthesia Notes for Sedation Medications was administered by Ziggy Steinberg MD; for sedation; Verbal order read back and verified. 12:55:01 Edgardo Bryan CRNA present and monitoring patient for TIVA. 13:00:39 [facility] Groovy Developer present for MAVIS. 13:02:31 --------ALL STOP TIME OUT------ 13:02:31 Final Timeout: patient, procedure, and site verified with staff and physician. All members of the team are in agreement. 13:02:38 Fire Safety Assessment: A--An alcohol-based skin anteseptic being used preoperatively., C--Open oxygen or nitrous oxide is being used., D--An ESU, laser, or fiber-optic light is being used. 13:02:49 Physical assessment completed. ASA score P 3 - A patient with severe systemic disease as per Ziggy Steinberg MD. 13:02:56 Sedation plan: TIVA Medication:Propofol 13:06:11 Procedure started. 13:06:12 MAVIS started. 13:15:57 MAVIS completed. 13:16:01 Procedure ended.(Physican Out) 13:18:20 Fluoroscopy time 00.00 minutes. 13:18:22 Fluoroscopy dose: 0 mGy 13:18:22 Flurop Dose total: 0 13:18:24 Dose Area Product 0 mGy/cm. 13:18:31 Post-procedure physical assessment completed. ASA score P 3 - A patient with severe systemic disease as per Ziggy Steinberg MD. 13:18:34 Post procedure rhythm: unchanged. 13:18:38 Estimated blood loss: 0 ml 13:18:40 Post procedure instruction explained to patient.Patient verbalizes understanding. 13:18:40 Patient needs reinforcement of post procedure teaching. 13:19:06 Procedure and supply charges have been captured, reviewed, submitted and are correct. 13:19:09 Procedure Complication : No complications 13:19:14 MAVIS Findings: other (see MD operative note) 13:19:15 Operative report dictated upon procedure completion. 13:19:15 See physician's report for complete and final results. 13:24:24 Vital chart was stopped 13:24:29 Report given to Pre/Post Procedure Room. 13:24:32 Patient transfered to Pre/Post Procedure Room with Stretcher. 13:24:35 Procedure ended. 13:24:35 Full Disclosure recording stopped 13:24:39 End room use (Document Last) 13:24:55 End room use (Document Last) 13:25:34 End room use (Document Last) Signature Audit [place] Stage Time Signature Unsigned Intra-Procedure 02/21/2019 Pradeep Licea 1:24:55 PM RT(R) Intra-Procedure 02/21/2019 Josee Kauffman 1:25:34 PM RN Intra-Procedure 02/21/2019 Ziggy Kirkpatrick 1:26:14 PM Michel LIEBERMAN [id number] [place] [address]
[~2019-02-21 10:56] MED LIST changes: -BETAPACE 80 MG80 MG PO; -COLACE100 MG PO; -PERCOCET 5-3251 TAB PO; -PROSCAR5 MG PO; -VITAMIN C500 M1 PO
[2019-02-21 11:25] VITALS: BP 147/86; Ht 188 cm; Wt 100.0 kg
[2019-02-21 11:46] LABS: BASOPHILS 0.8 % (0-2); EOSINOPHILS 3.7 % (0-7); HEMATOCRIT 44.8 % (42.0-54.0); HEMOGLOBIN 14.8 g/dL (13.5-17.5); IMMATURE GRANULOCYTES 0.2 % (0-5); MCH 33.5 pg (26.0-34.0); MCV 101.4 fL (80.0-100.0); MEAN PLATELET VOLUME 9.6 fL (7.4-10.4); MONOCYTES 11.2 % (2-11); NEUTROPHILS 56.1 % (40-80); PLATELET COUNT 227 10x3/uL (130-400); RBC 4.42 10x6/uL (4.20-6.10); RDW 13.9 % (11.5-14.5); WBC 5.2 10x3/uL (4.8-10.8)
[2019-02-21 11:50] LABS: ANION GAP 10.9 mmol/L (8-16); CALCIUM 8.8 mg/dL (8.5-10.1); CARBON DIOXIDE 27.4 mmol/L (21.0-32.0); CREATININE - SERUM 1.6 mg/dL (0.6-1.3); POTASSIUM - SERUM 4.3 mmol/L (3.5-5.1)
--- NOTE | 2019-02-21 13:30 | NUR ---
PT RECEIVED VIA STRETCHER FROM DATABASE MARKETING SPECIALIST POST [facility]. DR RECINOS IN ROOM SPEAKING W PT AND REGARDING PLAN OF CARE. PT AWAKE AND ALERT, DENIES PAIN OR DISCOMFORT. PT PLACED ON CARDIAC MONITORS AND O2 AT 2L/NC. IV PATENT INFUSING VIA ORDERS. CALL LIGHT IN REACH. HR NSR RATE 62, BP 143/83, RR 17, O2 SAT 95. AT BEDSIDE.
--- NOTE | 2019-02-21 13:45 | NUR ---
PT SITTING UP RESTING COMFORTABLY, DENIES PAIN OR DISCOMFORT. STATES THROAT NOT SORE. VSS. AT BEDSIDE, CALL LIGHT IN REACH
--- NOTE | 2019-02-21 14:22 | NUR ---
DISCHARGE INSTRUCTIONS REVIEWED W PT AND , BOTH VERBALIZED UNDERSTANDING. IV REMOVED W CATH INTACT. MONITORS REMOVED. OJ GIVEN, PT SWALLOWING W/O DIFFICULITY. Molly RICKS RN FROM DR. FERRARA'S OFFICE AT , APPOINTMENT GIVEN. PT UP TO DRESS FOR DISCHARGE
--- NOTE | 2019-02-21 14:25 | NUR ---
PT DISCHARGED VIA WC TO WAITING IN PRIVATE VEHICLE. PT HAD ALL BELONGINGS AND DISCHARGE PAPERWORK IN HAND.
--- NOTE | 2019-02-22 15:54 | TEE ---
PATIENT:ORIANA DUFFY MEDICAL RECORD: [id number] LOCATION:D.CAT AGE OF PATIENT: 78 ADMISSION DATE: 02/21/19 SEX: M REFERRING PHYSICIAN: INTERPRETING PHYSICIAN: SAIDA RECINOS MD TRANSESOPHAGEAL ECHOCARDIOGRAM Date: 02/21/19 MAVIS CHARGE Y INDICATIONS: MR PREMEDICATIONS: PATIENT'S RESPONSE PROCEDURE DOPPLER MEASUREMENTS: LVIT LA PA RA LVOT RVOT Asc. Ao AV Gradient Peak AV Mean AV Area MV Gradient Peak MV Mean MV Area INTERPRETATION: Doppler: 2-D: COLOR FLOW DOPPLER NORMAL SALINE STUDY: MISCELLANOUS: DIAGNOSIS: PLAN: Pumper Gauger Apprentice:3 Dr. Cramer Blood Bank Laboratory Technician: Kishan VASQUEZ COMMENTS: DATE OF SERVICE: 02/21/2019 TRANSESOPHAGEAL NOTE After general sedation via TIVA via anesthesia, transesophageal Omniplane probe was placed to the distal esophagus and proximal stomach without difficulty. No LVH. LV internal dimensions are normal. Wall motion is normal. EF is greater than or equal to 55%. Aortic valve is tricuspid with good valve excursion and no significant AI. Left atrium appears perhaps upper limits of normal to mildly TRANSESOPHAGEAL ECHOCARDIOGRAM REPORT [id number] ORIANA DUFFY dilated. Left atrial appendage is well visualized with good contractility. No evidence of thrombus. Mitral valve is well visualized. There is prolapse of the posterior leaf of the mitral valve. 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 The regurgitant orifice appears to be quite large via color flow imaging. Right-sided chambers appear grossly normal with trace TR with color flow imaging. At the end of the procedure, transesophageal Omniplane probe placed posteriorly and this showed minimal atherosclerotic debris in the descending aorta. TRANSINT:[id number] Voice Confirmation ID: [id number] DOCUMENT ID: [id number] at 1554 CC: [id number] DICTATION DATE: 02/21/19 1323 SEARCH ENGINE OPTIMIZATION ANALYST: 02/21/19 1353 DEP CLI 02/21/19 [facility] [address] [id number]
[2019-03-15] MEDS ORDERED: PERCOCET 5-3251 TAB PO (14:03)
== END 2019-02-21 14:25 | disposition home or self-care (01) ==
LOC: D.CATH 10:56
PROVIDERS: ATTEND Internal Medicine Interventional Cardiology
DX: I34.9 Nonrheumatic mitral valve disorder, unspecified (principal)

== ENCOUNTER 2019-03-01 11:47 | Outpatient (CLI) | payer MEDICARE, BC ==
[~2019-03-01] VITALS: Ht 188 cm; Wt 99.1 kg
--- NOTE | ~2019-03-01 | HEMODYNAMI ---
PATIENT:ORIANA DUFFY MEDICAL RECORD: [id number] : 40 LOCATION:D.CAT ADMISSION DATE: 03/01/19 Generatedon:03/01/201914:57 Patient name: ORIANA DUFFY Patient #: [id number] SSN: [id number] : 1940 Date of study: 03/01/2019 Page: Of Hemodynamic Procedure Report Patient Data Patient Demographics Procedure consent was obtained First Name: ORIANA Gender: Male Last Name: CLIVE : 1940 [facility] Initial: MATT Age: 78 year(s) Patient #: [id number] Race: SSN: [id number] Additional ID: [id number] Contact details Address: [address] [place] [address] [facility] State: [place] City: [place] Zip code: [address] Past Medical History Allergies Allergen Reaction Date Comments Reported Other allergy 02/21/2019 PCN Other allergy 03/01/2019 PCNS Admission Admission Data Admission Date: 03/01/2019 Admission Time: 11:47 Arrival Date: 03/01/2019 Arrival Time: 0:00 Admit Source: Other Insurance Payor: Medicare HIC #: [id number] Height (in.): 74.02 BSA: 2.26 (m2) Height (cm.): 188 BMI: 28.01 (kg/m2) Weight (lbs.): 218.26 Weight (kg.): 99 Lab Results Lab Result Date: 03/01/2019 Lab Result Time: 0:00 Biochemistry Name Units Result Min Max BUN mg/dl 17 --(---*)-- 7 18 Creatinine mg/dl 1.4 --(----)*- 0.6 1.3 eGFR ml/min 52 *-(----)-- 90 120 NONAFRICAN CBC Name Units Result Min Max Hemoglobin g/dl 15.2 --(-*--)-- 13.5 17.5 Procedure Procedure Types Cath Procedure Diagnostic Procedure LHC LHC w/Coronaries Procedure Description Procedure Date Procedure Date: 03/01/2019 Procedure Start Time: 14:38 Procedure End Time: 14:56 Procedure Staff Name Function Ziggy Steinberg MD Performing Physician Verona Acevedo RT Monitor Shania Chapman RT Monitor Lakisha Luciano RT Scrub Semaj Simmons RN Nurse Procedure Data Cath Procedure Fluoroscopy Diagnostic fluoroscopy Total fluoroscopy Time: 2.6 time: 2.6 min min Diagnostic fluoroscopy Total fluoroscopy dose: 350 dose: 350 mGy mGy Contrast Material Contrast Material Type Amount (ml) Isovue 300 57 Entry Location Entry Primary Successful Side Size Upsize Upsize Entry Closure Succes sful Closure Location (Fr) 1 (Fr) 2 (Fr) Remarks Device Remarks Femoral Right 5 Fr Exoseal artery Estimated blood loss: 5 ml Diagnostic catheters Device Type Used For End Catheter Placement MULTIPACK JL 4.0 5Fr Left Coronary catheter Angiography MULTIPACK 3DRC 5Fr Right Coronary catheter Angiography MULTIPACK Pigtail 5 Fr LV Angiography catheter Procedure Complications No complications Procedure Medications Medication Administration Route Dosage 0.9% NaCl I.V. 100 ml/hr Oxygen etCO2 Nasal cannula 2 l/min Heparin Flush Bag added to field 2 bags (1000units/500ml NS) Lidocaine 2% added to field 20 Radial Cocktail added to field 1 syringe (Verapamil 2mg/Nitro 400mcg/Heparin 1500units) Versed I.V. 2 mg Fentanyl I.V. 100 mcg Hemodynamics Rest BSA: 2.26 (m2) HGB: 15.2 (g/dl) O2 Consumption: Estimated: 246.81 (ml/min) O2 Co nsumption indexed: Estimated:109.21 (ml/min/m) Heart Rate: 56 (bpm) Pressure Samples Time Site Value (mmHg) Purpose Heart Use Rate(bpm) 14:50 LV 125/9,12 Snapshot 55 Gradients Valve Time Site Site Mean SEP/DFP Peak To Heart Use 1 2 (mmHg) (sec/min) Peak Rate (mmHg) (bpm) Aortic 14:50 LV AO 64 Snapshots Pre Cath Intra NCS Post Cath Vital Signs Time Heart Resp SPO2 etCO2 NIBP (mmHg) Rhythm Pain Sedation Rate (ipm) (%) (mmHg) Status Level (bpm) 14:23:09 58 15 96 0 155/83(139) NSR 0 (11) 10(A) , No pain 14:27:29 58 15 98 37.5 149/79(125) NSR 0 (11) 10(A) , No pain 14:31:49 57 13 95 40.5 137/79(120) NSR 0 (11) 10(A) , No pain 14:36:05 58 11 94 39 130/75(100) NSR 0 (11) 10(A) , No pain 14:40:23 56 10 93 38.3 124/69(98) NSR 0 (11) 10(A) , No pain 14:44:37 59 10 93 42.8 126/76(100) NSR 0 (11) 9(A) , No pain 14:48:49 62 12 94 40.5 142/80(109) NSR 0 (11) 9(A) , No pain 14:53:05 60 13 94 39.7 127/72(107) NSR 0 (11) 10(A) , No pain Medications Time Medication Route Dose Verified Delivered Reason Notes E ffectiveness by by 14:27:10 0.9% NaCl I.V. 100 Semaj Semaj Per ml/hr Iris Simmons physician RN RN 14:27:20 Oxygen etCO2 2 l/min Semaj Semaj for low 02 Nasal Lorigan Lorigan sats cannula RN RN 14:27:31 Heparin Flush added 2 bags Semaj Semaj used for Bag to Lorigan Lorigan procedure (1000units/500ml field RN RN NS) 14:27:42 Lidocaine 2% added 20ml Semaj Semaj for local to vial Lorigan Lorigan anesthetic field RN RN 14:27:57 Radial Cocktail added 1 Semaj Semaj used for (Verapamil to syringe Lorigan Lorigan procedure 2mg/Nitro [facility] RN RN 400mcg/Heparin 1500units) 14:39:18 Versed I.V. 2 mg Semaj Semaj for Lorigan Lorigan sedation RN RN 14:39:26 Fentanyl I.V. 100 mcg Semaj Semaj for Lorigan Lorigan sedation RN shift supervisor melting Log Time Note 14:00:35 Semaj Simmons RN sent for patient. Start room use. 14:15:49 Informed consent obtained and on chart 14:16:24 Signed procedure consent form obtained from patient. 14:16:26 Procedure Status Elective Heart Cath (OP). 14:16:28 Time tracking: Regular hours (M-F 7:00 - 5:00) 14:16:32 Plan of Care:Hemodynamics will remain stable., Cardiac rhythm will remain stable., Comfort level will be maintained., Respiratory function will remain adequate., Patient/ family verbilizes understanding of procedure., Procedure tolerated without complication., Recovers from procedure without complications.. 14:17:32 Patient received from Pre/Post Procedure Room to [facility] 1 Alert and oriented. Tansferred to table in Supine position. 14:17:33 Warm blankets applied, and wilfredo hugger turned on for patient comfort. 14:17:34 Correct patient and procedure confirmed by team. 14:17:34 ECG and BP/O2 sat monitors applied to patient. 14:18:32 Patient Weight : 218.26 lbs 14:19:17 Arrival Date: 03/01/2019 12:00:00 AM 14:19:51 Insurance Payor : Medicare 14:20:01 Patient Height : 74.02 inches 14:20:08 Admit Source: Other 14:21:58 Vital chart was started 14:21:59 Baseline sample Acquired. 14:22:27 Baseline sample Acquired. 14:22:37 Rhythm: sinus rhythm 14:22:39 Full Disclosure recording started 14:22:50 H&P Date Dictated: 03/01/2019 H&P Addendum completed by physician on day of procedure. (MUST COMPLETE FOR ALL OUTPATIENTS), New H&P dictated by physician.. 14:22:52 Pre-procedure instructions explained to patient. 14:22:53 Pre-op teaching completed and patient verbalized understanding. 14:22:57 Family in patients room. 14:23:00 Patient NPO since Midnight. 14:23:15 Patient allergic to Other allergyPCNS 14:23:19 Is the patient allergic to Iodine/contrast media? No. 14:23:25 Was the patient premedicated? Yes 14:24:10 Is patient on blood thinner?No 14:24:13 Patient diabetic? No. 14:24:21 ----Pre-sedation anethsthesia assessment.---- 14:24:25 Previous problem with sedation/anesthesia? No ? 14:24:29 Snore? Yes 14:24:31 Sleep apnea? No 14:24:34 Deviated septum? No 14:24:36 Opens mouth fully? Yes 14:24:37 Sticks out tongue? Yes 14:24:41 Airway obstruction? No ? 14:24:49 Dentures? Yes IN TIGHT 14:24:59 Pre procedure: right dorsailis pedis pulse 1+ Palpable, but thready & weak; easily obliterated 14:25:08 Modified Celestine's test Ulnar > 7 seconds. 14:25:14 Patient pain scale 0/10 ?. 14:25:25 IV patent on arrival in left forearm with 0.9% NaCl at [facility]. 14::43 Lab Result : BUN 17 mg/dl 14:: Lab Result : Creatinine 1.4 mg/dl 14:: Lab Result : eGFR NONAFRICAN 52 ml/min 14::44 Lab Result : Hemoglobin 15.2 g/dl 14::55 Lab results completed and on chart. 14:27:10 0.9% NaCl 100 ml/hr I.V. was administered by Semaj Simmons RN; Per physician; Verbal order read back and verified. 14:27:20 Oxygen 2 l/min etCO2 Nasal cannula was administered by Semaj Simmons RN; for low 02 sats; Verbal order read back and verified. 14:27:31 Heparin Flush Bag (1000units/500ml NS) 2 bags added to field was administered by Semaj Simmons RN; used for procedure; Verbal order read back and verified. 14:27:42 Lidocaine 2% 20ml vial added to field was administered by Semaj Simmons RN; for local anesthetic; Verbal order read back and verified. 14:27:57 Radial Cocktail (Verapamil 2mg/Nitro 400mcg/Heparin 1500units) 1 syringe added to field was administered by Semaj Simmons RN; used for procedure; Verbal order read back and verified. 14:30:12 Stress Test: no; N/A ? 14:30:17 Risk of Mortality: 0.5 14:30:21 Risk of blood transfusion: 0.6 14:30:26 Risk of RAMONITA: 0.8 14:30:32 Right Radial & Right Groin area was prepped with chlora-prep and draped in sterile fashion 14:30:34 Alarms reviewed by R. N. 14:30:35 Sharps counted by scrub and verified by R.N. 14:30:36 Physician arrived 14:30:37 --------ALL STOP TIME OUT------ 14:30:38 Final Timeout: patient, procedure, and site verified with staff and physician. All members of the team are in agreement. 14:30:40 Right Radial & Right Groin site verified by team. 14:30:47 Fire Safety Assessment: A--An alcohol-based skin anteseptic being used preoperatively., C--Open oxygen or nitrous oxide is being used., D--An ESU, laser, or fiber-optic light is being used. 14:30:54 Physical assessment completed. ASA score P 2 - A patient with mild systemic disease as per Ziggy Steinberg MD. 14:31:11 3a) 45-59 Moderately reduced kidney function. 14:31:16 Maximum allowable contrast dose (3.7 X eGFR X 0.75)144 ml. 14:31:23 Sedation plan: IV Moderate Sedation Medication:Versed, Fentanyl 14:31:29 Use device set Radial Dx or PCI 14:31:32 ACIST Syringe (44298) opened to sterile field. 14:31:33 Medline Cath Pack ([id number]) opened to sterile field. 14:31:33 Bag Decanter (2002S) opened to sterile field. 14:31:34 ACIST Hand Control (68871) opened to sterile field. 14:31:35 ACIST Manifold (43037) opened to sterile field. 14:31:36 Tegaderm 4 x 4 (1626W) opened to sterile field. 14:31:37 MBrace Wrist Support ([id number]) opened to sterile field. 14:31:39 EMERALD Guide Wire (884-647) opened to sterile field. 14:31:41 SHEATH 6FR RAIN (7470031) opened to sterile field. 14:34:32 Zero performed for pressure channel P1 14:38:30 Procedure started. 14:38:33 Local anesthetic to right radial artery with Lidocaine 2% by Ziggy Steinberg MD.INITIAL ACCESS ONLY 14:38:36 Zero performed for pressure channel P1 14:39:18 Versed 2 mg I.V. was administered by Semaj Simmons RN; for sedation; Verbal order read back and verified. 14:39:26 Fentanyl 100 mcg I.V. was administered by Semaj Simmons RN; for sedation; Verbal order read back and verified. 14:42:22 Local anesthetic to right femoral artery with Lidocaine 2% by Ziggy Steinberg MD.ADDITIONAL ACCESS 14:42:42 UNABLE TO GAIN RADIAL ACCESS. 14:43:04 SHEATH 5FR [place] (GWT200) opened to sterile field. 14:43:17 Use device set Multipack Set 14:43:29 DIAGNOSTIC Multipack 5Fr catheter set ([id number]) opened to sterile field. 14:44:24 A 5 Fr sheath was inserted into the Right Femoral artery 14:44:34 A MULTIPACK JL 4.0 5Fr catheter was advanced over the wire and used for Left Coronary Angiography. 14:44:55 LCA angiography performed. 14:45:13 Injector settings: Ml/sec: 3, Volume: 6, 14:45:45 Catheter removed. 14:45:53 A MULTIPACK 3DRC 5Fr catheter was advanced over the wire and used for Right Coronary Angiography. 14:47:52 RCA angiography performed. 14:48:12 ACCDominant side:Co-Dominant 14:48:17 Injector settings: Ml/sec: 3, Volume: 6, 14:48:24 Catheter removed. 14:48:30 A MULTIPACK Pigtail 5 Fr catheter was advanced over the wire and used for LV Angiography. 14:49:37 LV hemodynamics recorded. 14:50:14 LV gram done using ALSTON 14:50:23 EF : 55 % 14:50:51 Catheter removed. 14:51:11 EXOSEAL 5Fr (EX500) opened to sterile field. 14:51:39 Sheath removed intact; hemostasis achieved with Exoseal to the Right Femoral artery. 14:51:43 Procedure ended.(Physican Out) 14:52:11 Contrast amount:Isovue 300 57ml. 14:52:28 Fluoroscopy time 02.60 minutes. 14:52:37 Fluoroscopy dose: 350 mGy 14:52:37 Flurop Dose total: 350 14:52:45 Dose Area Product 94164 mGy/cm. 14:52:51 Maximum allowable dose exceeded? No. 14:52:53 Sharps counted by scrub and verified by R.N. 14:52:59 Insertion/operative site no bleeding no hematoma. 14:53:07 Post-op/insertion site Right Femoral artery dressed using a 4 x 4 and Tegaderm. 14:53:13 Post right femoral artery:stable 14:54:34 Post Procedure Pulses reassessed and unchanged 14:54:39 Post-procedure physical assessment completed. ASA score P 2 - A patient with mild systemic disease as per Ziggy Steinberg MD. 14:54:43 Post procedure rhythm: unchanged. 14:54:47 Estimated blood loss: 5 ml 14:54:50 Post procedure instruction explained to patient.Patient verbalizes understanding. 14:54:51 Patient needs reinforcement of post procedure teaching. 14:54:59 Procedure and supply charges have been captured, reviewed, submitted and are correct. 14:55:35 Procedure Complication : No complications 14:55:43 Vital chart was stopped 14:55:47 [facility] Findings: mild to moderate CAD (<70%) 14:55:51 Operative report dictated upon procedure completion. 14:55:53 See physician's report for complete and final results. 14:55:55 Report given to Pre/Post Procedure Room. 14:55:59 Patient transfered to Pre/Post Procedure Room with Stretcher. 14:56:02 Procedure ended. 14:56:02 Full Disclosure recording stopped 14:56:06 End room use (Document Last) Device Usage Item Name Manufacture Quantity Catalog Hospital Part Current Minima l Lot# / Number Charge Number Stock Stock Serial# Code ACIST Acist 1 99640 945475 406825 480750 20 Syringe Medical (44013) Systems Inc Medline Medline 1 [id number] 627155 83206 983153 5 Cath Pack ([id number]) Bag Microtek 1 2001S 554672 64641 303339 5 Decanter Medical Inc. () ACIST Hand Acist 1 75985 566506 842780 367197 5 Control Medical (18522) Systems Inc ACIST Acist 1 01258 698215 669223 708762 5 Manifold Medical (65667) Systems Inc Tegaderm 4 3M 1 1626W 409897 582909 363564 5 x 4 (1626W) MBrace Advanced 1 140-0250-00 845048 61180 093417 5 Wrist Vascular Support Dynamics ([id number]) EMERALD Cardinal 1 502-455 764043 279594 874716 5 Guide Wire Health (502455) SHEATH 6FR Cardinal 1 8652529 207060 5469630 617075 5 [facility] (8737562) SHEATH 5FR Terumo 1 OUH323 966517 218818 335109 5 [place] (ZNT900) DIAGNOSTIC Cardinal 1 XL7697 612037 84525 100729 30 Multipack Health 5Fr catheter set (YF5863) MULTIPACK Cardinal 1 777765 5 JL 4.0 5Fr Health catheter MULTIPACK Cardinal 1 267181 5 3DRC 5Fr Health catheter MULTIPACK Cardinal 1 256121 5 Pigtail 5 Health Fr catheter EXOSEAL 5Fr Cardinal 1 EX500 518410 664313 089145 10 (EX500) Health Signature [facility]it [place] Stage Time Signature Unsigned Intra-Procedure 03/01/2019 Shania 2:56:37 PM Ari RT(R) (CV) Intra-Procedure 03/01/2019 Semaj 2:57:16 PM Iris JIN Intra-Procedure 03/01/2019 Ziggy Kirkpatrick 2:57:44 PM Michel LIEBERMAN [facility] [address] [place] [address]
[2019-03-01 12:18] VITALS: BP 151/82; Ht 188 cm; Wt 99.1 kg
[2019-03-01 12:26] LABS: BASOPHILS 0.5 % (0-2); HEMOGLOBIN 15.2 g/dL (13.5-17.5); IMMATURE GRANULOCYTES 0.2 % (0-5); LYMPHOCYTES 22.6 % (15-50); MCH 33.7 pg (26.0-34.0); MEAN PLATELET VOLUME 9.4 fL (7.4-10.4); MONOCYTES 9.4 % (2-11); NEUTROPHILS 64.3 % (40-80); PLATELET COUNT 230 10x3/uL (130-400); RBC 4.51 10x6/uL (4.20-6.10); RDW 13.8 % (11.5-14.5); WBC 6.3 10x3/uL (4.8-10.8)
[2019-03-01 12:36] LABS: ANION GAP 9.9 mmol/L (8-16); CALCIUM 8.9 mg/dL (8.5-10.1); CARBON DIOXIDE 27.3 mmol/L (21.0-32.0); CREATININE - SERUM 1.4 mg/dL (0.6-1.3); POTASSIUM - SERUM 4.2 mmol/L (3.5-5.1)
--- NOTE | 2019-03-01 15:17 | HP ---
PATIENT: ORIANA DUFFY MEDICAL RECORD: [id number] ACCOUNT: [id number] LOCATION:LEANDRO : 40 ADMISSION DATE: 03/01/19 PCP: RICO VIDALES MD HISTORY AND PHYSICAL EXAMINATION HISTORY OF PRESENT ILLNESS: A 78-year-old gentleman following for mitral regurgitation. He recently underwent transesophageal echocardiography, which showed a probable ruptured chordae tendineae necessitating valve repair versus replacement at this point. Given surgery in the future, he is undergoing angiography to delineate coronary anatomy. PAST MEDICAL HISTORY: Includes: 1. History of hypothyroidism. 2. Hypertension. 3. Mitral regurgitation as described above. ALLERGIES: PENICILLIN. PHYSICAL EXAMINATION: GENERAL: Pleasant gentleman in no acute distress, appears stated age. VITAL SIGNS: Blood pressure 124/74, pulse 66 and regular. HEENT: Normocephalic, atraumatic. NECK: No bruits noted. HEART: Regular, II/ systolic ejection murmur heard best at the primarily mitral area, but radiating throughout the entire precordium. LUNGS: Good air excursion. ABDOMEN: Soft, nontender. EXTREMITIES: Pulses 2+ with no edema. IMPRESSION: Plan for angiography to delineate coronary anatomy for mitral valve repair versus replacement. TRANSINT:[id number] Voice Confirmation ID: [id number] DOCUMENT ID: [id number] SAIDA RECINOS MD at 1517 CC: [id number] DICTATION DATE: 03/01/19 140 BANQUET SET UP PERSON: 03/01/19 [id number] [place] [address]
--- NOTE | 2019-03-01 15:19 | NUR ---
PT ALERT, DENIES ANY C/O. DRESSING CDI TO RIGHT GROIN, AREA IS SOFT AND NONTENDER. PEDAL PULSES PALPABLE. BANDAID IS CDI TO RIGHT WRIST. PULSES PALPABLE, VSS, HOB IS FLAT. BED LOCKED AND LOW, SIDE RAILS UP X2. AT BEDSIDE, DR RECINOS HAS ROUNDED ON PT.
--- NOTE | 2019-03-01 15:29 | NUR ---
DRESSING CDI TO RIGHT GROIN, AREA IS SOFT AND NONTENDER. PEDAL PULSES PALPABLE. BANDAID CDI RIGHT WRIST. HOB IS FLAT. SINUS JOSE ANTONIO AT 57, BP IS 131/77. AT BEDSIDE.
--- NOTE | 2019-03-01 16:16 | NUR ---
HOB ELEVATED 30 DEGREES, SANDWICH AND PO FLUIDS SERVED. DRESSING CDI RIGHT GROIN, PEDAL PULSES PALPABLE. BANDAID CDI RIGHT WRIST, RADIAL PULSE PALPABLE. PT IS ALERT AND DENIES ANY C/O.
--- NOTE | 2019-03-01 16:30 | NUR ---
HOB FULLY ELEVATED, PT HASW DAMIAN SANDWICH WITH NO C/O NAUSEA. DRESSING CDI RIGHT GROIN, BANDAID CDI RIGHT WRIST. VSS. PT ALERT AND DENIES ANY C/O.
--- NOTE | 2019-03-01 16:44 | NUR ---
DRESSING REMAINS CDI ROGHT GROIN, PEDAL PULSES PALPABLE. BANDAID CDI RIGHT WRIST, RADIAL PULSE PALPABLE. PT DENIES ANY C/O. DC INSTRUCTIONS REVIEWED WITH PT AND WHO VERBALIZE UNDERSTANDING.
--- NOTE | 2019-03-01 17:11 | NUR ---
1655 IV DC'D WITH CATH INTACT. DRESSING REMAINS CDI TO RIGHT GROIN AND BANAID TO RIGHT WRIST. PULSES PALPABLE. PT IS ALERT AND DENIES ANY C/O. PT DRESSING FOR DC TO HOME WITH ASSIST. 1710 PT HAS AMBULATED TO THE BATHROOM AND VOIDED QS. PT ESCORTED TO PRIVATE AUTO VIA WC BY NURSE WITH DRIVING HIM HOME. PT HAS ALL PERSONAL BELONGINGS AND DC INSTRUCTIONS AT TIME OF DISCHARGE.
--- NOTE | 2019-03-02 13:03 | OP ---
PATIENT NAME: ORIANA DUFFY MEDICAL RECORD: [id number] :40 LOCATION:D.CAT ADMISSION DATE: SURGEON: SAIDA RECINOS MD DATE OF OPERATION: 03/01/2019 PROCEDURE: Left heart catheterization, selective coronary angiography, right femoral artery approach. CATHETERS: A 5-[place]izen [place] sheath, 5/4 left and right Gretta, 5/4 pig. The procedure was well tolerated. The patient was returned to [place]. Sheath was removed. ExoSeal device was placed. FINDINGS: Left ventriculography in 30-degree ALSTON view: Normal wall motion. Normal systolic function. CORONARY ANATOMY: LEFT MAIN: Left main is free of disease. LAD: Free of disease in the diagonal system. CIRCUMFLEX: Free of disease in the marginal system RIGHT CORONARY ARTERY: Dominant artery, gives rise to PDA, free of disease. IMPRESSION: Normal LV systolic function, normal coronary anatomy. A 3+ mitral regurgitation for valve repair versus replacement via CT surgery. TRANSINT:[id number] Voice Confirmation ID: [id number] DOCUMENT ID: [id number] SAIDA RECINOS MD at 1303 CC: [id number] DICTATION DATE: 03/01/19 1502 PAN DUMPER: 03/01/19 2156 DEP CLI 03/01/19 [facility] [address] [place] [address]
[2019-03-15] MEDS ORDERED: PERCOCET 5-3251 TAB PO (14:03)
== END 2019-03-01 17:10 | disposition home or self-care (01) ==
LOC: D.CATH 11:47
PROVIDERS: ATTEND Internal Medicine Interventional Cardiology
DX: I34.9 Nonrheumatic mitral valve disorder, unspecified (principal); R06.02 Shortness of breath; I10 Essential (primary) hypertension

== ENCOUNTER 2019-03-02 07:17 | Inpatient (IN) | payer MEDICARE, BC ==
[~2019-03-02] VITALS: Ht 188 cm; Wt 108.2 kg
[2019-03-03 09:36] LABS: BASOPHILS 0.3 % (0-2); EOSINOPHILS 2.5 % (0-7); HEMATOCRIT 48.1 % (42.0-54.0); HEMOGLOBIN 15.8 g/dL (13.5-17.5); IMMATURE GRANULOCYTES 0.1 % (0-5); LYMPHOCYTES 16.6 % (15-50); MCH 33.9 pg (26.0-34.0); MCHC 32.8 g/dL (31.0-37.0); MCV 103.2 fL (80.0-100.0); MEAN PLATELET VOLUME 9.1 fL (7.4-10.4); MONOCYTES 9.3 % (2-11); NEUTROPHILS 71.2 % (40-80); PLATELET COUNT 236 10x3/uL (130-400); RBC 4.66 10x6/uL (4.20-6.10); RDW 13.9 % (11.5-14.5); WBC 6.8 10x3/uL (4.8-10.8)
[2019-03-03] MEDS ORDERED: PROSCAR5 MG PO (09:50)
[2019-03-03] MEDS ORDERED: VITAMIN C500 M1 PO (09:50)
[2019-03-03 09:54] LABS: APTT 28.2 SECONDS (22.8-39.4); INR 0.95 (0.85-1.17); PROTIME 12.2 SECONDS (11.6-15.0)
[2019-03-03 09:58] LABS: ALBUMIN 3.7 g/dL (3.4-5.0); ANION GAP 10.2 mmol/L (8-16); BILIRUBIN - TOTAL 0.78 mg/dL (0.2-1.3); CARBON DIOXIDE 32.5 mmol/L (21.0-32.0); CREATININE - SERUM 1.5 mg/dL (0.6-1.3); PHOSPHOROUS 2.8 mg/dL (2.5-4.9); POTASSIUM - SERUM 4.7 mmol/L (3.5-5.1); PROTEIN - SERUM 7.5 g/dL (6.4-8.2); T4 THYROXIN - FREE 0.88 ng/dL (0.76-1.46); THYROID STIMULATING HORMONE 3.67 uIU/mL (0.36-3.74); URIC ACID 5.3 mg/dL (2.6-7.2)
[2019-03-03 10:39] LABS: APPEARANCE CLEAR (CLEAR); BILIRUBIN NEGATIVE (NEGATIVE); COLOR YELLOW (YELLOW); GLUCOSE NEGATIVE (NEGATIVE); KETONE NEGATIVE (NEGATIVE); NITRITE NEGATIVE (NEGATIVE); PROTEIN NEGATIVE (NEGATIVE); UROBILINOGEN NORMAL (NORMAL)
[2019-03-08] VITALS (56 sets, daily range): BP systolic 85–148; BP diastolic 41–84; BMI 27.4; BMI 28.5
[2019-03-08 11:19] LABS: INR 1.46 (0.85-1.17); PROTIME 17.1 SECONDS (11.6-15.0)
--- NOTE | 2019-03-08 12:15 | NUR ---
PT ARRIVED TO UNIT AROUND 1209 VIA BED. ETT SIZE 8.0 23 AT THE LIP LINE. VENT SETTINGS A/C, RATE 14, TV 650, FIO2 60%, PEEP 5. TPM WIRES CONNECTED BUT PACEMAKER IS OFF AT THIS TIME. MIDLINE INCISION WITH DRESSING C/D/I. SUBTERNAL CT TO 20CM SUCTION NO AIR LEAK NOTED. RIJ WITH PLASMOLYTE AND DOPAMINE INFUSING. SEE IV FLOWSHEET FOR RATES. RIGHT RADIAL AZ SECURED WITH WRIST PROTECTOR. DELANEY CATHETER IN PLACE WITH CLEAR YELLOW URINE NOTED. JOSE HOSE ON BILAT LE. WRIST RESTRAINTS APPLIED UPON ARRIVAL PER ORDER. NURSE AT BESIDE. LOIS CONTINUE TO MONITOR CLOSELY.
--- NOTE | 2019-03-08 13:20 | NUR ---
DOPAMINE AT 1MCG/KG/MIN PER DR. FERRARA.
--- NOTE | 2019-03-08 14:11 | NUR ---
PT RESTING COMFORTABLY. AWAKE AND FOLLOWS COMMANDS. WILL CONTINUE TO MONITOR CLOSELY.
--- NOTE | 2019-03-08 16:00 | NUR ---
Dr. De Leon reviewed ABG's. Gave okay to extubate. Pt extubated at 1550. Placed on 2L of O2 via NC.
--- NOTE | 2019-03-08 16:30 | NUR ---
Collins barajas dc'd per orders. Pt tolerated well. Spouse at bedside. Will continue to monitor.
--- NOTE | 2019-03-08 16:46 | NUR ---
Pt instructed to perform insentive spirometer 10 repetions every 10 minutes. Pulls 0991-8314 on I.S. Will continue to monitor.
--- NOTE | 2019-03-08 18:03 | NUR ---
Resting comfortably. No pain reported at this time. Continues to pull between 8260-6713 on insentive spirometer. No further needs at this time. Will continue to monitor.
--- NOTE | 2019-03-08 19:55 | NUR ---
REPORT RECEIVED, PT IN BED WITH EYES CLOSED AND CHEST RISING. EASILY AWOKEN TO VERBAL STIMULI. RIGHT IJ WITH PLASMALYTE AND DOPAMINE PATENT. RIGHT RADIAL A-LINE WITH GOOD WAVE FORM. NO COMPLAINTS OF PAIN. VSS. DELANEY AND CHEST TUBE PATENT. NO OTHER NEEDS MADE KNOWN. CALL LIGHT IN REACH. WILL CONTINUE TO OBSERVE.
--- NOTE | 2019-03-08 22:07 | NUR ---
PT RECECIEVED ORAL MEDICATIONS WITH OUT DIFFICULTY. COMPLAINS OF DISCOMFORT WITH PRN PAIN MEDICATIONS GIVEN PER JUL.
[2019-03-09] VITALS (61 sets, daily range): BP systolic 101–158; BP diastolic 45–84; BMI 29.9
--- NOTE | 2019-03-09 01:43 | NUR ---
PT WITH EYES CLOSED AND CHEST RISING. NO S/S OF DISTRESS. CALL LIGHT IN REACH. WILL CONTINUE TO OBSERVE.
--- NOTE | 2019-03-09 03:57 | NUR ---
XRAY DONE A BEDSIDE, PT TOLERATED WELL. NO COMPLAINTS OF PAIN. NO NEEDS OR CONCERNS MADE KNOWN. CALL LIGHT IN REACH. WILL CONTINUE TO OBSERVE.
[2019-03-09 05:39] LABS: HEMATOCRIT 38.9 % (42.0-54.0); HEMOGLOBIN 12.5 g/dL (13.5-17.5); MCH 33.3 pg (26.0-34.0); MCHC 32.1 g/dL (31.0-37.0); MCV 103.7 fL (80.0-100.0); MEAN PLATELET VOLUME 9.9 fL (7.4-10.4); RBC 3.75 10x6/uL (4.20-6.10); RDW 13.6 % (11.5-14.5); WBC 12.3 10x3/uL (4.8-10.8)
[2019-03-09 06:08] LABS: ALBUMIN 3.1 g/dL (3.4-5.0); ANION GAP 11.6 mmol/L (8-16); BILIRUBIN - TOTAL 1.14 mg/dL (0.2-1.3); CALCIUM 8.2 mg/dL (8.5-10.1); CREATININE - SERUM 1.8 mg/dL (0.6-1.3); POTASSIUM - SERUM 4.6 mmol/L (3.5-5.1)
--- NOTE | 2019-03-09 06:30 | NUR ---
CHG BATH GIVEN AND UP TO CHAIR. PT TOLERATED WELL. SUBSTERNAL DRESSING AND DRESSING TO RIGHT IJ CHANGED PER PROTOCOL. NO CONCERNS NOTED. CALL LIGHT IN REACH. WILL CONTINUE TO OBSERVE.
--- NOTE | 2019-03-09 07:34 | NUR ---
Shift report received. Pt alert and oriented. Up in chair. Rates pain 2/10. Describes as soreness on his chest. On 2L of O2 via nc. Right radial a-line secured with wrist protector. RIJ with plasmolyte at 100ml/hr and dopamine at 1mcg/kg/min. Midsternal dressing C/D/I. Substernal CT to 20cm suction. No air leak noted. TPM wires in place. Russell catheter in place. Concentrated yellow urine noted. JOSE hose on bilateral LE. Pt pulls 2000 on insentive spirometer. Shift assessment charted in flowsheet. No further needs at this time. Safety measures in place. Will continue to monitor.
--- NOTE | 2019-03-09 09:00 | NUR ---
Resting comfortably in chair. Ate about 50% of meal. Will advance to regular diet per orders.
--- NOTE | 2019-03-09 11:24 | NUR ---
A-LINE AND DELANEY CATHETER DC'D PER DR. FERRARA. DOPAMINE AND PLASMOLYTE TURNED OFF AT [address] FERRARA.
--- NOTE | 2019-03-09 12:45 | OP ---
PATIENT NAME: ORIANA DUFFY MEDICAL RECORD: [id number] :40 LOCATION:D.I D.CV05 ADMISSION DATE:03/08/19 SURGEON: VINICIO FERRARA MD DATE OF OPERATION: 03/08/2019 SURGEON: Vinicio Ferrara MD UNDERWRITING OPERATIONS MANAGER: Tera Mcduffie. OPERATIONS PERFORMED: 1. Mitral valve repair with quadrangular resection of central scallop posterior leaflet. 2. Mitral valve annuloplasty (32 mm Physio). PREOPERATIVE DIAGNOSIS: Mitral regurgitation. POSTOPERATIVE DIAGNOSIS: Mitral regurgitation. ANESTHESIA: General endotracheal anesthesia. ESTIMATED BLOOD LOSS: Total cardiopulmonary bypass with Cell Saver retransfusion. SPECIMENS: Central scallop posterior leaflet mitral valve. COMPLICATIONS: None. CONDITION: Stable. DISPOSITION: ICU. OPERATIVE FINDINGS: 1. Transesophageal echocardiography confirmed ruptured chordae and mitral regurgitation. 2. Ruptured chordae from the central scallop of the posterior leaflet, quadrangular resection performed and ring placed with no significant residual regurgitation. 3. Transesophageal echocardiography after separation from cardiopulmonary bypass with good leaflet mobility and no mitral regurgitation. OPERATIVE INDICATION: Mitral regurgitation. OPERATIVE PROCEDURE IN DETAIL: The patient was brought to the operative suite. General anesthesia was obtained. The patient was prepped and draped. Median sternotomy incision was made. A large xiphoid was excised. Sternotomy was performed. Heparin was given. Pericardium was opened. The aorta was cannulated. Bicaval cannulation was performed after activated clotting time was appropriately elevated the patient was placed on cardiopulmonary bypass. Retrograde cardioplegia cannula was inserted. The patient was cooled. Crossclamp was placed. Antegrade cardioplegia was given through a 14-gauge angiocatheter. The interatrial groove was opened. There was a significant amount of collateral flow. The mitral valve was visualized with findings as noted above. It was OPERATIVE REPORT [id number] ORIANA DUFFY felt amenable to repair. The central scallop was excised. The posterior leaflet along with the ruptured chordae and edges of the leaflet were reapproximated. Annuloplasty ring was sized appropriately and sutures were placed along the mitral annulus then through the ring, which was carefully lowered into place, sutures were tied. The valve was inspected with no regurgitation. The patient was rewarmed. Aortotomy was closed, the patient in steep Trendelenburg position, the ventricular apex was de-aired, cross clamp was removed. Aortic root was vented and then the vent catheter was removed. The patient was fully rewarmed, weaned from cardiopulmonary bypass once stable. The patient was decannulated. The retrograde cardioplegic cannula site was oversewn. The aortotomy was oversewn with a pledgeted Prolene suture. Protamine was given. Hemostasis was ensured. Drains were placed in the mediastinum. Ventricular pacing wires and atrial pacing wires were placed, briefly paced, but resumed a spontaneous sinus rhythm. The pericardial fat was loosely reapproximated in 3 sites. The sternum was closed with wires. Fascia was closed. Subcutaneous tissue was closed. Skin was closed. Dermabond was placed. The needle and sponge counts reported correct. The patient was brought to the ICU in stable condition. TRANSINT:[id number] Voice Confirmation ID: [id number] DOCUMENT ID: [id number] VINICIO FERRARA MD at 1245 CC: RICO VIDALES and SAIDA RECINOS MD [id number] DICTATION DATE: 03/08/19 1310 MEAT COOLER: 03/08/19 2204 ADM IN [facility] [address] [place] [address]
--- NOTE | 2019-03-09 13:15 | NUR ---
CALL LIGHT ANSWERED. ASSISTED PT UP TO BEDSIDE COMMODE. NO STOOL OR URINE NOTED. NO FURTHER NEEDS. WILL CONTINUE TO MONITOR.
--- NOTE | 2019-03-09 13:38 | TEE ---
PATIENT:ORIANA DUFFY MEDICAL RECORD: [id number] LOCATION:[place] [address] AGE OF PATIENT: 78 ADMISSION DATE: 03/08/19 SEX: M REFERRING PHYSICIAN: INTERPRETING PHYSICIAN: SAIDA RECINOS MD TRANSESOPHAGEAL ECHOCARDIOGRAM Date: 03/08/19 MAVIS CHARGE Y INDICATIONS: MVR PREMEDICATIONS: PATIENT'S RESPONSE PROCEDURE DOPPLER MEASUREMENTS: LVIT LA 3.8 PA RA LVOT RVOT Asc. Ao AV Gradient Peak AV Mean AV Area MV Gradient Peak MV Mean MV Area INTERPRETATION: Doppler: 2-D: COLOR FLOW DOPPLER NORMAL SALINE STUDY: MISCELLANOUS: DIAGNOSIS: PLAN: Baby Formula Worker:3 Dr. Cramer Gum Remover: Kishan VASQUEZ COMMENTS: DATE OF SERVICE: 03/08/2019 PROCEDURE: Intraoperative MAVIS. FINDINGS: Preop shows normal wall motion. 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 Postop shows mitral valve repair with trivial MR and good LV function remains with good contractility of all hayes. TRANSINT:[id number] Voice Confirmation ID: [id number] DOCUMENT ID: [id number] TRANSESOPHAGEAL ECHOCARDIOGRAM REPORT [id number] ORIANA DUFFY at 1338 CC: [id number] DICTATION DATE: 03/08/19 1458 DRAFTER SEISMOGRAPH: 03/09/19 0000 ADM IN [facility] [address] [place] [address]
--- NOTE | 2019-03-09 15:15 | NUR ---
RE-ASSESSMENT COMPLETED. NO ACUTE CHANGES FROM PREVIOUS ASSESSMENT. OCCASIONAL COUGH NOTED. NO SPUTUM. CONTINUES ON 2L OF O2 VIA NC. CHEST TUBE IS TO WATER SEAL. NO FURTHER NEEDS. WILL CONTINUE TO MONITOR.
--- NOTE | 2019-03-09 17:32 | NUR ---
PT HAS NOT VOIDED SINCE CATHETER REMOVAL. 277ML IN BLADDER PER BLADDER SCANNER. DR. FERRARA NOTIFIED. ORDERED TO RE-INSERT DELANEY CATHETER.
--- NOTE | 2019-03-09 18:11 | NUR ---
16 PERSIAN DELANEY CATHETER INSERTED AT THIS TIME PER ORDERS. 150ML OF YELLOW URINE NOTED A THIS TIME. PT TOLERATED WELL. RESTING IN BED COMFORTABLY. NO FURTHER NEEDS. WILL CONTINUE TO MONITOR.
--- NOTE | 2019-03-09 19:55 | NUR ---
PT RECEIVED IN BED WITH EYES OPEN WATCHING TV. COMPLAINS OF DISCOMFORT OF 2/10 TO CHEST INCISION. DRESSING C/D/I. DELANEY PATENT WITH YELLOW URINE NOTED. IS PERFORMED [id number]. RIGHT IJ S/L. FRESH ICE WATER GIVEN PER REQUEST. NO OTHER NEEDS MADE KNOWN. CALL LIGHT IN REACH. WILL CONTINUE TO OBSERVE.
--- NOTE | 2019-03-09 20:38 | MORECARE ---
CASE MANAGEMENT DISCHARGE SUMMARY PATIENT: ORIANA DUFFY UNIT: [id number] ADM DATE: 03/08/19 AGE: 78 : 40 SEX: M ROOM/BED: D.[facility] AUTHOR: PEARLDOC PHYSICIAN: REFERRING PHYSICIAN: TAMARA FERRARA MD DATE OF SERVICE: 03/09/19 Discharge Plan Patient Name: ORIANA DUFFY Facility: [facility]:[place] : 1940 Planned Disposition: Home Anticipated Discharge Date: Discharge Date: Expected LOS: Initial Reviewer: [email or web address] Initial Review Date: 03/09/2019 Generated: 03/09/19 9:37 pm Comments DCP- Discharge Planning Updated by [id number]: Chaya Corona on 03/09/19 7:[address] Patient Name: ORIANA DUFFY Admission Status: Elective Accout number: [id number] Admission Date: 03-08-2019 : 1940 Admission Diagnosis: Attending: TAMARA FERRARA Current LOS: 1 Anticipated DC Date: Planned Disposition: Home Primary Insurance: MEDICARE A & B Discharge Planning Comments: CM met with patient at bedside after explaining CM role and obtaining verbal consent. Patient lives at home with his [place] where he is independent with his care and plans to return there upon discharge. Patient feels this would be a safe discharge. CM discussed availability / needs of home health and medical equipment. Patient denies any discharge needs at this time. Patient states he will have his family drive him home upon discharge. CM will continue to follow and assist as needed with discharge planning / needs. Manifold Builder: Chaya Corona DCPIA - Discharge Planning Initial Assessment Updated by [email or web address]: Chaya Corona on 03/09/19 8:35 pm * Is the patient Alert and Oriented? Yes * How many steps to enter\exit or inside your home? * PCP FLASH * [facility] [place] [facility] * Preadmission Environment Home with Family * ADLs Independent * Other Equipment WALKER,CANE, W/C, CRUTCHES, BSC * List name and contact numbers for known caregivers / representatives who currently or will assist patient after discharge: COLLINS DUFFY - [facility] - [phone] * Verbal permission to speak to the caregivers and representatives has been obtained from the patient. No * Community resources currently utilized None * Additional services required to return to the preadmission environment? No * Can the patient safely return to the preadmission environment? Yes * Has this patient been hospitalized within the prior 30 days at any hospital? No Patient Name: ORIANA DUFFY Page [phone] at 2038 All edits/amendments must be made on the electronic document DICTATION DATE: 03/09/192036 SAS BI DEVELOPER: MARY 03/09/192036 RPT#: [id number] DC DATE: STATUS: ADM IN [facility] [address] [place] [address] END OF REPORT
--- NOTE | 2019-03-09 23:58 | NUR ---
DR MARMOLEJO CALLED AND GAVE REPORT OF PT IN A-FIB. RECEIVED ORDERS FOR AMIODARONE 150MG/100MLS BOLUS AND AMIODARONE 360MG/200ML 1MG/MIN FOR 6HRS THEN CHANGE TO 0.5MG/MIN. IF PT REMAINS IN A-FIB AFTER 30 MINS OF BOLUS GIVE ANOTHER 150MG/100MLS BOLUS. FIRST BOLUS GIVEN AND AMIODARONE 1MG/MIN STARTED. WILL CONTINUE TO OBSERVE.
[2019-03-10] VITALS (24 sets, daily range): BP systolic 92–129; BP diastolic 41–69
--- NOTE | 2019-03-10 02:43 | NUR ---
PT NOTED TO BE BACK INTO NORMAL SINUS RYTHME AT 0230, SOME PAC NOTED WELL.
--- NOTE | 2019-03-10 04:45 | NUR ---
SUBSTERNAL DRESSING CHANGED. TPM WIRES CONNECTED TO TPM. PT TOLERATED WELL. WILL CONTINUE TO OBSERVE.
[2019-03-10 05:35] LABS: HEMATOCRIT 36.4 % (42.0-54.0); HEMOGLOBIN 11.6 g/dL (13.5-17.5); MCH 32.8 pg (26.0-34.0); MCHC 31.9 g/dL (31.0-37.0); MCV 102.8 fL (80.0-100.0); MEAN PLATELET VOLUME 10.4 fL (7.4-10.4); RBC 3.54 10x6/uL (4.20-6.10); RDW 13.5 % (11.5-14.5)
[2019-03-10 06:01] LABS: WBC 7.9 10x3/uL (4.8-10.8)
[2019-03-10 06:07] LABS: ALBUMIN 2.6 g/dL (3.4-5.0); ANION GAP 12.6 mmol/L (8-16); BILIRUBIN - TOTAL 0.43 mg/dL (0.2-1.3); CARBON DIOXIDE 27.4 mmol/L (21.0-32.0); CREATININE - SERUM 2.1 mg/dL (0.6-1.3); PROTEIN - SERUM 5.7 g/dL (6.4-8.2)
--- NOTE | 2019-03-10 06:13 | NUR ---
CHG BATH GIVEN WITH LINEN CHANGE. UP TO CHAIR. TOLERATED WELL. CALL LIGHT IN REACH. NO NEEDS MADE KNOWN. WILL CONTINUE TO OBSERVE
--- NOTE | 2019-03-10 07:00 | NUR ---
SHIFT ASSESSMENT COMPLETED. PT CARE ASSUMED, MONITORS ON AND WORKING, PT AWAKE AND ALERT SITTING UP IN CHAIR, CALL LIGHT WITHIN REACH, SEE FLOW SHEET FOR FURTHER DETAILS. WILL CONTINUE TO OBSERVE.
--- NOTE | 2019-03-10 09:00 | NUR ---
PT SITTING UP IN CHAIR, MONITORS ON AND WORKING, VITALS STABLE. FAMILY AT BEDSIDE, UPDATE PROVIDED, NO SIGNS/SYMPTOMS OF PAIN OR DISCOMFORT NOTED AT THIS TIME, CALL LIGHT WITHIN REACH, WILL CONTINUE TO OBSERVE.
--- NOTE | 2019-03-10 11:00 | NUR ---
NO CHANGES, CT D/C'D PT TOLERATED WELL. NO SIGNS/SYMPTOMS OF PAIN OR DISCOMFOFRT NOTED AT THIS ITME, SEE FLOW SHEET FOR FURTHER DETAILS. WILL CONTINUE TO OBSERVE.
--- NOTE | 2019-03-10 13:00 | NUR ---
PT SITTING UP IN CHAIR, MONITORS ON AND WORKING, VITALS STABLE, FAMILY AT BEDSIDE, UPDATE PROVIDED, NO SIGNS/SYMPTOMS OF PAIN OR DISCOMFORT NOTED, WILL CONTINUE TO OBSERVE.
--- NOTE | 2019-03-10 15:00 | NUR ---
PT SITTING UP IN CHAIR, NO CHANGES, PT DENIES ANY COMPLAINT OF PAIN OR DISCOMFORT NOTED AT THIS TIME. SEE FLOW SHEET FOR FURTHER DETAILS. WILL CONTINUE TO OBSERVE.
--- NOTE | 2019-03-10 17:00 | NUR ---
PT ASSISTED BACK INTO BED, FRESH LINENS ON AT THIS TIME, PT AWAKE AND ALERT, NO SIGNS/SYMPTOMS OF PAIN OR DISCOMFORT NOTED AT THIS TIME, CALL LIGHT WITHIN REACH, WILL CONTINUE TO OBSERVE.
--- NOTE | 2019-03-10 19:49 | NUR ---
PT RECEIVED WITH EYES OPEN WATCHING TV. ALERT AND ORIENTED. NO S/S OF DISTRESS. CALL LIGHT IN REACH. DELANEY PATENT WITH YELLOW URINE. VSS. NO NEEDS MADE KNOWN. WILL CONTINUE TO OBSERVE.
--- NOTE | 2019-03-10 20:44 | NUR ---
PT HAS RECEIVED SCHEDULED MEDICATIONS PER MAR. NO NEEDS MADE KNOWN. CALL LIGHT IN REACH. WILL CONTINUE TO OBSERVE.
--- NOTE | 2019-03-10 23:06 | NUR ---
TEMPORARY PACEMAKER WITH ABNORMAL PACING ON MONITOR. DR MARMOLEJO CALLED BY CHARGE NURSE ATTEMPT TO REVERSE POLARITY TO VENTRICULAR LEADS WITH NO CHANGE. PT HR NORMAL AND SINUS RHYTHM AND DR. MARMOLEJO GAVE ORDERS TO KEEP CONNECTED AND TURN OFF PACEMAKER. SUBSTERNAL DRESSING CHANGED. PT TOLERATED WELL. WILL CONTINUE TO OBSERVE.
[2019-03-11] VITALS (24 sets, daily range): BP systolic 89–132; BP diastolic 45–72
--- NOTE | 2019-03-11 01:54 | NUR ---
PT RESTING WITH EYES CLOSED AND CHEST RISING. VSS. CALL LIGHT IN REACH. WILL CONTINUE TO OBSERVE.
--- NOTE | 2019-03-11 03:14 | NUR ---
PT ASSISTED TO BATHROOM. FLATULANCE ONLY NOTED. PT IN BED. TOLERATED WELL. VSS. RT AT BEDSIDE AT THIS TIME. CALL LIGHT IN REACH. WILL CONTINUE TO OBSERVE.
--- NOTE | 2019-03-11 06:05 | NUR ---
CHG BATH GIVEN WITH COMPLETE LINEN CHANGE. PT TOLERATED WELL. UP IN CHAIR. PT BRUSHING TEETH. MEDICATIONS GIVEN PER JUL. VSS. FRESH WATER PROVIDED. CALL LIGHT IN REACH. WILL CONTINUE TO OBSERVE.
[2019-03-11 06:16] LABS: HEMATOCRIT 32.4 % (42.0-54.0); HEMOGLOBIN 10.4 g/dL (13.5-17.5); MCH 32.6 pg (26.0-34.0); MCHC 32.1 g/dL (31.0-37.0); MCV 101.6 fL (80.0-100.0); MEAN PLATELET VOLUME 10.4 fL (7.4-10.4); RBC 3.19 10x6/uL (4.20-6.10); RDW 13.4 % (11.5-14.5); WBC 6.4 10x3/uL (4.8-10.8)
[2019-03-11 06:29] LABS: ALBUMIN 2.4 g/dL (3.4-5.0); ANION GAP 7.2 mmol/L (8-16); BILIRUBIN - TOTAL 0.47 mg/dL (0.2-1.3); CARBON DIOXIDE 28.5 mmol/L (21.0-32.0); POTASSIUM - SERUM 3.7 mmol/L (3.5-5.1); PROTEIN - SERUM 5.4 g/dL (6.4-8.2)
--- NOTE | 2019-03-11 11:28 | NUR ---
Nutrition Follow-up: S/p MVR on 03/08. Good appetite. No BM yet. Diet: Regular PO intake: 75% avg Wt: 236# Last BM: 03/07 Labs reviewed Meds reviewed -Continue current diet as tolerated. -RD following.
--- NOTE | 2019-03-11 13:30 | NUR ---
IV STARTED WITH 20G IN L VENTRAL FOREARM. R IJ DC'D. MANUAL PRESSURE HELD X 3 MIN. SITE DRESSED WITH 2X2 AND TEGADERM.
--- NOTE | 2019-03-11 19:00 | NUR ---
REPORT RECEIVED. RECEIVED PATIENT IN BED AWAKE ALERT AND ORIENTED X 4. MONITORS CONNECTED TO PATIENT WITH ALARMS SET. VSS. ASSESSMENT PERFORMED WITH NO ACUTE DISTRESS OBSERVED. CALL LIGHT IN REACH AND ABLE TO UTILIZE TO MAKE NEEDS KNOWN. IV LFA INTACT/ SWAB CAPS COVERING UNUSED PORTS.
--- NOTE | 2019-03-11 21:00 | NUR ---
AWAKE AND ALERT. PM MEDS TAKEN WITHOUT DIFF. CALL LIGHT IN REACH. VSS
--- NOTE | 2019-03-11 23:00 | NUR ---
REASSESSMENT COMPLETED PER FLOW SHEET WITH NO CHANGES OR ACUTE DISTRESS OBSERVED. VSS. CALL LIGHT IN REACH
[2019-03-12] VITALS (23 sets, daily range): BP systolic 96–145; BP diastolic 33–73; Ht 188 cm; Wt 108.2 kg
--- NOTE | 2019-03-12 01:00 | NUR ---
RESTING WITH EYES CLOSED, EASILY ROUSED AND ALERT. VSS CALL LIGHT IN REACH
--- NOTE | 2019-03-12 03:00 | NUR ---
AWAKE AND ALERT. VSS. CALL LIGHT IN REACH
[2019-03-12 06:01] LABS: BASOPHILS 0.1 % (0-2); EOSINOPHILS 3.1 % (0-7); HEMATOCRIT 33.4 % (42.0-54.0); IMMATURE GRANULOCYTES 0.3 % (0-5); LYMPHOCYTES 12.3 % (15-50); MCH 33.1 pg (26.0-34.0); MCHC 32.9 g/dL (31.0-37.0); MCV 100.6 fL (80.0-100.0); MEAN PLATELET VOLUME 10.2 fL (7.4-10.4); MONOCYTES 11.5 % (2-11); NEUTROPHILS 72.7 % (40-80); RBC 3.32 10x6/uL (4.20-6.10); RDW 13.6 % (11.5-14.5); WBC 6.7 10x3/uL (4.8-10.8)
[2019-03-12 06:04] LABS: PLATELET COUNT 198 10x3/uL (130-400)
[2019-03-12 06:26] LABS: ALBUMIN 2.5 g/dL (3.4-5.0); ANION GAP 12.7 mmol/L (8-16); BILIRUBIN - TOTAL 0.63 mg/dL (0.2-1.3); CALCIUM 8.5 mg/dL (8.5-10.1); CARBON DIOXIDE 26.1 mmol/L (21.0-32.0); CREATININE - SERUM 2.3 mg/dL (0.6-1.3); POTASSIUM - SERUM 3.8 mmol/L (3.5-5.1); PROTEIN - SERUM 6.3 g/dL (6.4-8.2)
--- NOTE | 2019-03-12 10:33 | NUR ---
0945: DR. MARMOLEJO HERE. NEW ORDERS REC'D. 1000: AMBULATED WITH APPROX 500FT. TELEMETRY SHOW UNCONT ATRIAL FIB RATE UP TO 140S. BACK TO CHAIR. DR. MARMOLEJO HERE AND NOTIFIED. 1003: DR. FERREIRA NOTIFIED OF CONSULT VIA ANSWERING SERVICE. 1014: ADDITIONAL 400MG CORDARONE GIVEN. 1020: DR. FERREIRA HERE. NEW ORDERS REC'D.
[2019-03-12 10:53] LABS: APPEARANCE CLEAR (CLEAR); BILIRUBIN NEGATIVE (NEGATIVE); COLOR YELLOW (YELLOW); GLUCOSE NEGATIVE (NEGATIVE); KETONE NEGATIVE (NEGATIVE); NITRITE NEGATIVE (NEGATIVE); PROTEIN NEGATIVE (NEGATIVE); UROBILINOGEN NORMAL (NORMAL)
[2019-03-12 11:04] LABS: BACTERIA FEW /hpf (NEGATIVE); RED CELLS - URINE OCC /hpf (0-5); WHITE CELLS - URINE OCC /hpf (NEGATIVE)
--- NOTE | 2019-03-12 19:00 | NUR ---
REPORT RECEIVED. RECEIVED PATIENT IN BED, AWAKE ALERT AND ORIENTED X 4. SPEECH CLEAR. MONITORS CONNECTED TO PATIENT WITH ALARMS SET. VSS. NORMAL SINUS RHYTHMN ON MONITOR . ASSESSMENT COMPLETED PER FLOW SHEET WITH NO ACUTE DISTRESS OBSERVED. DENIES COMPLAINT OR NEEDS AT THIS TIME. CALL LIGHT IN REACH AND ABLE TO UTILIZE TO MAKE NEEDS KNOWN.
--- NOTE | 2019-03-12 19:43 | NUR ---
ORAL CARE DONE WITH PERIDEX
--- NOTE | 2019-03-12 21:00 | NUR ---
RESTING WITH EYES CLOSED. EASILY ROUSED AND ALERT. PM MEDS TAKEN WITHOUT DIFF. CALL LIGHT IN REACH AND ABLE TO UTILIZE TO MAKE NEEDS KNOWN.
--- NOTE | 2019-03-12 23:00 | NUR ---
RESTING WITH EYES CLOSED, EASILY ROUSED AND ALERT. VSS. REASSESSMENT COMPLETED PER FLOW SHEET WITH NO ACUTE DISTRESS OBSERVED. CALL LIGHT IN REACH
[2019-03-13] VITALS (23 sets, daily range): BP systolic 107–152; BP diastolic 42–90
--- NOTE | 2019-03-13 01:00 | NUR ---
AWAKE AND ALERT. VSS. CALL LIGHT IN REACH
--- NOTE | 2019-03-13 03:00 | NUR ---
RESTING WITH EYES CLOSED, EASILY ROUSED AND ALERT. VSS. REASSMENTED COMPLETED PER FLOW SHEET WITH NO DISTRESS OBSERVED. CONTINUES NORMAL SINUS RHYTHMN ON MONITOR. CALL LIGHT IN REACH
[2019-03-13 05:42] LABS: BASOPHILS 0.2 % (0-2); EOSINOPHILS 4.3 % (0-7); HEMATOCRIT 31.2 % (42.0-54.0); HEMOGLOBIN 10.2 g/dL (13.5-17.5); IMMATURE GRANULOCYTES 0.2 % (0-5); LYMPHOCYTES 13.4 % (15-50); MCH 32.7 pg (26.0-34.0); MCHC 32.7 g/dL (31.0-37.0); MEAN PLATELET VOLUME 9.5 fL (7.4-10.4); MONOCYTES 15.3 % (2-11); NEUTROPHILS 66.6 % (40-80); PLATELET COUNT 230 10x3/uL (130-400); RBC 3.12 10x6/uL (4.20-6.10); RDW 13.5 % (11.5-14.5); WBC 5.8 10x3/uL (4.8-10.8)
[2019-03-13 06:42] LABS: ALBUMIN 2.3 g/dL (3.4-5.0); ANION GAP 12.9 mmol/L (8-16); BILIRUBIN - TOTAL 0.51 mg/dL (0.2-1.3); CALCIUM 7.9 mg/dL (8.5-10.1); CARBON DIOXIDE 24.7 mmol/L (21.0-32.0); CREATININE - SERUM 1.8 mg/dL (0.6-1.3); POTASSIUM - SERUM 3.6 mmol/L (3.5-5.1); PROTEIN - SERUM 5.2 g/dL (6.4-8.2); URIC ACID 5.9 mg/dL (2.6-7.2)
--- NOTE | 2019-03-13 06:43 | NUR ---
VSS. NO DISTRESS OBSERVED. CALL LIGHT IN REACH
--- NOTE | 2019-03-13 06:43 | NUR ---
CHG BATH GIVEN. LINENS CHANGED. UP TO BEDSIDE CHAIR. DAMIAN WELL. CALL LIGHT IN REACH.
--- NOTE | 2019-03-13 19:00 | NUR ---
PT ASSESSSMENT COMPLETED AT THIS TIME, NO CHANGES NOTED FROM NURSE REPORT, PT AAOX4, NO COMPLAINTS AT THIS TIME, VSS
--- NOTE | 2019-03-13 19:06 | NUR ---
ORAL CARE DONE WITH PERIDEX
--- NOTE | 2019-03-13 21:00 | NUR ---
PT GIVEN 2100 MEDS, PT DENIES COMPLAINTS AT THIS TIME, VSS, WILL CONT TO MONITOR
--- NOTE | 2019-03-13 23:00 | NUR ---
PT REASSESSMENT COMPLETED AT THIS TIME, NO CHANGES NOTED, VSS
[2019-03-14] VITALS (23 sets, daily range): BP systolic 107–156; BP diastolic 57–94
--- NOTE | 2019-03-14 01:00 | NUR ---
pt resting with eyes closed, resp even non labored, no distress noted, vss
--- NOTE | 2019-03-14 03:00 | NUR ---
PT REASSESSMENT COMPLETED ATH THIS TIME, NO CHANGES NOTED, VSS
--- NOTE | 2019-03-14 05:00 | NUR ---
PT RESTING AWAKE IN BED, NO DISTRESS NOTED, NO COMPLAINTS, VSS
[2019-03-14 06:49] LABS: BASOPHILS 0.5 % (0-2); EOSINOPHILS 4.2 % (0-7); HEMATOCRIT 33.5 % (42.0-54.0); IMMATURE GRANULOCYTES 0.2 % (0-5); LYMPHOCYTES 15.2 % (15-50); MCH 32.8 pg (26.0-34.0); MCHC 32.8 g/dL (31.0-37.0); MEAN PLATELET VOLUME 9.3 fL (7.4-10.4); MONOCYTES 12.3 % (2-11); NEUTROPHILS 67.6 % (40-80); RBC 3.35 10x6/uL (4.20-6.10); RDW 13.5 % (11.5-14.5); WBC 6.2 10x3/uL (4.8-10.8)
[2019-03-14 06:50] LABS: PLATELET COUNT 281 10x3/uL (130-400)
[2019-03-14 07:02] LABS: ANION GAP 13.8 mmol/L (8-16); CALCIUM 8.7 mg/dL (8.5-10.1); CARBON DIOXIDE 24.9 mmol/L (21.0-32.0); CREATININE - SERUM 1.6 mg/dL (0.6-1.3); POTASSIUM - SERUM 3.7 mmol/L (3.5-5.1); URIC ACID 5.5 mg/dL (2.6-7.2)
--- NOTE | 2019-03-14 07:52 | NUR ---
REPORT RECEIVED. PT AWAKE AND UP IN CHAIR AT BEDSIDE. SHIFT ASSESSMENT COMPLETE. PT DENIES PAIN. LUNG SOUNDS CLEAR. PT NOTED TO BE IN IRREGULAR RHYTHM. MOSTLY LIKELY A-FIB. AT BEGINNING OF SHIFT PT APPEARED TO BE IN SR WITH FREQUENT PVC'S, BUT RATE HAS INCREASED SINCE BREATHING TREATMENT AND BREAKFAST. WILL PROVIDE MORNING MEDICATIONS AND NOTIFY PHYSICIAN OF FINDINGS. PT CURRENTLY CONVERSING WITH AND NO DISTRESS NOTED. BP REMAINS STABLE.
--- NOTE | 2019-03-14 09:18 | NUR ---
DR FERRARA BY TO SEE PATIENT. ASKED FOR AMIODARONE TO BE STOPPED. WILL START SOTOLOL 80MG. ADD POTASSIUM. ORDER MAG LAB ADD-ON. STAT ECHO. DO NOT WALK PATIENT WITH PHYSICAL THERAPY THIS MORNING.
--- NOTE | 2019-03-14 10:25 | NUR ---
Nutrition Follow-up: POD 6 MVR. Good appetite/PO intake. Diet: Regular PO intake: 80-100% Wt: 238.2# Last BM: 03/13 Labs reviewed Meds reviewed -Continue current diet as tolerated. -RD following.
--- NOTE | 2019-03-14 14:00 | NUR ---
PT UP TO TOILET, THEN WALKED AROUND ROOM FOR A FEW MINUTES. STEADY GAIT. NO DISTRESS.
--- NOTE | 2019-03-14 17:00 | NUR ---
DINNER TRAY PROVIDED. AT BEDSIDE. NO OTHER NEEDS VOICED.
--- NOTE | 2019-03-14 19:00 | NUR ---
PT ASSESSMENT COMPLETED AT THIS TIME, NO CAHNGES NOTED FROM NURSE REPORT, NO DISTRESS OR COMPAINTS AT THIS TIME, VSS
--- NOTE | 2019-03-14 19:24 | NUR ---
ORAL CARE DONE WITH PERIDEX
--- NOTE | 2019-03-14 21:00 | NUR ---
PT GIVEN 2100 MED, NO DISTRESS NOTE, NO COMPLAINTS AT THIS TIME, VSS
--- NOTE | 2019-03-14 23:00 | NUR ---
PT REASSESSMENT COMPLETED AT THIS TIME, NO CHANGES NOTED, NO DISTRESS OR COMPLAINTS NOTED, VSS
[2019-03-15] VITALS (16 sets, daily range): BP systolic 125–149; BP diastolic 61–81
--- NOTE | 2019-03-15 01:00 | NUR ---
PT RESTING IN BED STATES THAT HIS BACK IS STARTING TO HURT AGAIN, PT WAS REPOSTITIONED AND ADVISED THAT FEELS MUCH BETTER, NO DISTRESS NOTED, VSS
--- NOTE | 2019-03-15 01:00 | NUR ---
PT RESTING WITH EYES CLOSED, RESP EVEN NON LABORED, NO DISTRESS NOTED, VSS
--- NOTE | 2019-03-15 03:00 | NUR ---
PT REASSESSMENT COMPLETED AT THIS TIME NO CHANGES NOTED, VSS
--- NOTE | 2019-03-15 05:00 | NUR ---
PT RESTING IN BED WATCHING NO DISTRESS NOTED, VSS
[2019-03-15 06:16] LABS: BASOPHILS 0.6 % (0-2); EOSINOPHILS 6.1 % (0-7); HEMATOCRIT 33.1 % (42.0-54.0); HEMOGLOBIN 10.4 g/dL (13.5-17.5); IMMATURE GRANULOCYTES 0.1 % (0-5); LYMPHOCYTES 19.6 % (15-50); MCH 31.8 pg (26.0-34.0); MCHC 31.4 g/dL (31.0-37.0); MCV 101.2 fL (80.0-100.0); MEAN PLATELET VOLUME 9.6 fL (7.4-10.4); MONOCYTES 13.5 % (2-11); NEUTROPHILS 60.1 % (40-80); RBC 3.27 10x6/uL (4.20-6.10); RDW 13.5 % (11.5-14.5); WBC 6.9 10x3/uL (4.8-10.8)
[2019-03-15 06:23] LABS: PLATELET COUNT 348 10x3/uL (130-400)
[2019-03-15 06:27] LABS: ANION GAP 11.9 mmol/L (8-16); CALCIUM 8.7 mg/dL (8.5-10.1); CARBON DIOXIDE 26.7 mmol/L (21.0-32.0); CREATININE - SERUM 1.7 mg/dL (0.6-1.3)
[2019-03-15 06:28] LABS: POTASSIUM - SERUM 4.6 mmol/L (3.5-5.1)
--- NOTE | 2019-03-15 07:22 | NUR ---
report received. shift assessment complete. pt up in chair, has had breathing treatment. pt in sinus rhythm. voices no complaints. does ask about going home today.
[2019-03-15] MEDS ORDERED: COLACE100 MG PO (10:35)
--- NOTE | 2019-03-15 11:30 | NUR ---
PT SLEEPING IN CHAIR AT BEDSIDE. NO DISTRESS NOTED.
--- NOTE | 2019-03-15 12:24 | NUR ---
PT EATING LUNCH AT THIS TIME. DENIES NEEDS. CALL LIGHT IN REACH.
[2019-03-15] MEDS ORDERED: BETAPACE 80 MG80 MG PO (14:02)
[2019-03-15] MEDS ORDERED: PERCOCET 5-3251 TAB PO (14:03)
--- NOTE | 2019-03-15 17:00 | NUR ---
DC INSTRUCTIONS REVIEWED WITH PT BY MYSELF AND DR WHITMAN NURSE, PT AND DENY QUESTIONS, PIV DCD TIP INTACT, ASSISTED TO CAR AND DCD WITH AT 1500
--- NOTE | 2019-03-15 23:04 | MORECARE ---
CASE MANAGEMENT DISCHARGE SUMMARY PATIENT: ORIANA DUFFY UNIT: [id number] ADM DATE: 03/08/19 AGE: 78 : 40 SEX: M ROOM/BED: D.[facility] AUTHOR: DANIEL KANG PHYSICIAN: REFERRING PHYSICIAN: TAMARA FERRARA MD DATE OF SERVICE: 03/15/19 Discharge Plan Patient Name: ORIANA DUFFY Facility: [facility]:[place] : 1940 Planned Disposition: Home Anticipated Discharge Date: Discharge Date: 03/15/2019 Expected LOS: Initial Reviewer: [email or web address] Initial Review Date: 03/09/2019 Generated: 03/16/19 12:03 am Comments DCP- Discharge Planning Updated by [id number]: Chaya Corona on 03/15/19 10:[address] Patient Name: ORIANA DUFFY Encounter No: [id number] : 1940 Primary Insurance: MEDICARE A & B Anticipated DC Date: Planned Disposition: Home External Planned Provider: : Vishnu LARRY SIGNED 03/15/19 @ 0945 DCP follow-up note: Patient and family in agreement with discharge plan. No changes to plan. Case management will follow and assist as needed. Chaya Corona DCP- Discharge Planning Updated by [id number]: Chaya Corona on 03/09/19 7:[address] Patient Name: ORIANA DUFFY Admission Status: Elective Accout number: [id number] Admission Date: 03-08-2019 : 1940 Admission Diagnosis: Attending: TAMARA FERRARA Current LOS: 1 Anticipated DC Date: Planned Disposition: Home Primary Insurance: MEDICARE A & B Discharge Planning Comments: CM met with patient at bedside after explaining CM role and obtaining verbal consent. Patient lives at home with his [place] where he is independent with his care and plans to return there upon discharge. Patient feels this would be a safe discharge. CM discussed availability / needs of home health and medical equipment. Patient denies any discharge needs at this time. Patient states he will have his family drive him home upon discharge. CM will continue to follow and assist as needed with discharge planning / needs. Hand Driller: Chaya Corona DCPIA - Discharge Planning Initial Assessment Updated by [id number]: Chaya Corona on 03/09/19 8:35 pm * Is the patient Alert and Oriented? Yes * How many steps to enter\exit or inside your home? * PCP FLASH * [facility] * Preadmission Environment Home with Family * ADLs Independent * Other Equipment WALKER,CANE, W/C, CRUTCHES, BSC * List name and contact numbers for known caregivers / representatives who currently or will assist patient after discharge: COLLINS DUFFY - [facility] - [phone] * Verbal permission to speak to the caregivers and representatives has been obtained from the patient. No * Community resources currently utilized None * Additional services required to return to the preadmission environment? No * Can the patient safely return to the preadmission environment? Yes * Has this patient been hospitalized within the prior 30 days at any hospital? No Coverage Notice Reviewer: [id number] - Chaya Corona Notice Issued Date-Time: 03/15/2019 9:45 Notice Type: IM Discharge Notice Notice Delivered To: Patient Relationship to Patient: Self Test Eng Name: Delivery Method: HAND - Hand Delivered Trini Days: Prior Verbal Notification: Recipient Understood Notice: Yes Recipient Signature: Yes Med Rec Note Co-signed by Attending: Coverage Notice Comment: Last DP export: 03/09/19 7:38 p Patient Name: ORIANA DUFFY Page 23419 at 2304 All edits/amendments must be made on the electronic document DICTATION DATE: 03/15/192302 CERAMIC SAW TENDER: MARY 03/15/192302 RPT#: [id number] DC DATE:03/15/19 STATUS: DIS IN [facility] [address] [place] [address] END OF REPORT
--- NOTE | 2019-03-16 10:41 | EC ---
PATIENT:ORIANA DUFFY DATE OF SERVICE: 03/08/19 SEX: M MEDICAL RECORD: [id number] DATE OF : 40 LOCATION:[place] [address] AGE OF PATIENT: 78 ADMISSION DATE: 03/08/19 REFERRING PHYSICIAN: INTERPRETING PHYSICIAN: CONSTANCE SPENCER MD ECHOCARDIOGRAM REPORT ECHO CHARGES 5 ECHO LIMITED Date: 03/14/19 CLINICAL DIAGNOSIS: POST SX ATRIAL FIB, 1 WEEK POST MV REPAIR ECHOCARDIOGRAPHIC MEASUREMENTS (adult normal given) AC root (d.<3.7cm) 4.0 cm LV Septum d (<1.2 cm> 1.7 cm Valve Excursion 2.0 cm LV Septum (systole) 2.0 cm Left Atria (s.<4.0cm> 4.3 cm LVPW d(<1.2cm) 1.5 cm RV (d.<2.3cm) 4.9 cm LVPW (sytole) 1.7 cm LV diastole(<5.6CM) 5.3 cm MV E-F(>70mm/sec) cm LV systole 3.9 cm LVOT Diameter 2.6 cm MV exc.(>10mm) cm Est.ejection fraction (50-75%) % DOPPLER: LVIT cm/sec A cm/sec E cm/sec LA 3.8 cm/sec RVSP 25 mmHg LVOT cm/sec AOP1/2T m/s Asc. Ao cm/sec RVOT cm/sec RA cm/sec PA cm/sec AV Gradient Peak mmHg AV Mean mmHg AV Area cm MV Gradient Peak mmHg MV Mean mmHg MV Area cm COMMENTS: Reformatory Attendant: Monica GAN Reflector Driller And Deburrer: 1 Dr. Spencer TAPE# PACS Pericardial Effusion N DATE OF SERVICE: FINDINGS: 1. Left ventricular chamber size is within normal limits. Left ventricular systolic function is normal. Overall ejection fraction estimated at 55%. 2. Left atrium, right atrium, and right ventricular chamber sizes are mildly dilated. 3. Valvular structures have normal structure and motion. 4. Doppler interrogation only reveals mild tricuspid regurgitation, no other valvular insufficiency or stenosis. Pulmonary systolic pressure estimated at 25 ECHOCARDIOGRAM REPORT [id number] ORIANA DUFFY mmHg. 5. No evidence of pericardial effusion or left ventricular thrombus. 6. The patient is in atrial fibrillation during the study. TRANSINT:[id number] Voice Confirmation ID: [id number] DOCUMENT ID: [id number] CONSTANCE SPENCER MD at 1041 CC: [id number] DICTATION DATE: 03/14/19 1634 STOCK HANDLER FLOORPERSON: 03/14/19 190 DIS IN 03/15/19 [facility] [address] [place] [id number]
== END 2019-03-15 17:03 | disposition home or self-care (01) | DRG 219 ==
LOC: D.SDCHOLD 03-08 05:00 → D.CVICU 03-08 05:00 → D.SDCHOLD 03-08 07:30 → D.CVICU 03-08 11:04
PROVIDERS: Internal Medicine Cardiovascular Disease; Internal Medicine Nephrology; ADMIT Thoracic Surgery (Cardiothoracic Vascular Surgery); ATTEND Thoracic Surgery (Cardiothoracic Vascular Surgery)
PROC: B24BZZ4 Ultrasonography of Heart with Aorta, Transesophageal (ICD-10-PCS; 2019-03-08)
PROC: 02U Heart and Great Vessels, Supplement (ICD-10-PCS; principal; 2019-03-08 07:30)
DX: I34.1 Nonrheumatic mitral (valve) prolapse (principal); I51.1 Rupture of chordae tendineae, not elsewhere classified; N17.9 Acute kidney failure, unspecified; I34.0 Nonrheumatic mitral (valve) insufficiency; I48.0 Paroxysmal atrial fibrillation; E79.0 Hyperuricemia without signs of inflammatory arthritis and tophaceous disease; I12.9 Hypertensive chronic kidney disease with stage 1 through stage 4 chronic kidney disease, or unspecified chronic kidney disease; N18.3 Chronic kidney disease, stage 3 (moderate); D64.9 Anemia, unspecified